=== PATIENT | male | born 1980 | race Caucasian/White ===

== ENCOUNTER 2018-03-29 20:18 | Emergency (ER) | payer MEDICARE, MEDICAID, SELFPAY ==
[2018-03-29 20:20] VITALS: BP 146/76; PULSE 90; RESP 15; TEMP 36.8; O2SAT 100; BMI 24.7
--- NOTE | 2018-03-29 20:28 | ED.DCSUM_ITS ---
- ER Visit Summary Date of Service: 03/29/18 Chief Complaint: Left hand injury History of Present Illness: The patient is a 37 M presents to the emergency department injury to his left hand. Patient was in his normal state of health. He slipped going up stairs. He landed with his hand underneath him. Since that time, he has been unable to straighten his left fourth finger. He did not strike his head. He denies loss of consciousness. He denies any history of prior fracture. He takes no daily medications. Physical Examination: Exam is relatively unremarkable. Patient does have flexion deformity of the left fourth finger. His cap refill is normal. Two- point examination is preserved. He is unable to extend secondary to pain. There is no pain in the wrist. There is no pain in the shoulder. Test Results: [] Emergency Department Course and Treatment: The patient also states that he hit his lateral neck when he fell. He has very minimal tenderness. There is no ecchymosis or abrasion. Plain films were obtained of the neck which were unremarkable. I obtained plain films of his hand. He does have dislocation of the left fourth PIP joints. Patient underwent digital block. The reduction was done. Post reduction films do show to be in place. Patient was placed in an AlumaFoam splint. Be given a short course of analgesics. He will follow-up with orthopedics for reevaluation as needed. Treatment Plan: [] Disposition: Discharge Impression: 1. Mechanical fall 2. Left fourth PIP dislocation with reduction This note was generated with [employer] dictation software. It may contain incorrect words, spelling, and punctuation that were not noted in review of the chart prior to signing ED Disposition - Plan for ED Patient: Chief Complaint: Upper Extremity Injury Instructions: ED Dislocation Finger Redu Prescriptions: Hydrocodone Bitart/Apap 5-325 [[place] 5MG-325MG] 1 tab PO Q6H PRN PRN 3 Days #8 tab PRN Reason: Pain Referrals: Binu Dobbs DO [STAFF PHYSICIAN] -
--- NOTE | 2018-03-29 20:30 | RAD_ITS ---
STUDY: X-RAY - CERVICAL SPINE REASON FOR EXAM: Male, 37 years old. Neck pain after falling on ice. TECHNIQUE: 3 view(s) of the cervical spine were obtained. COMPARISON: None FINDINGS: Normal anterior atlantoaxial articulation. Normal odontoid process. There is straightening of the normal cervical lordosis. Normal vertebral bodies and endplates. Minimal early degenerative disc changes at C5-6. Normal visualized intervertebral neuroforamina. The soft tissue structures are unremarkable. There is no demonstrated fracture of the cervical spine. RAD/Cerv Spine 2 or 3 Views IMPRESSION: Straightening of the cervical spine with otherwise normal alignment. Negative for acute fracture of the cervical spine. Minimal/early degenerative disc findings at C5-6. Electronically Signed: Suzanne Luevano MD at 21:42 EST , Service support ,
[2018-03-29] MEDS: HYDROcodone Bitartrate/Apap 5/325 Tablet PO ×2 (20:32→21:41)
--- NOTE | 2018-03-29 20:40 | RAD_ITS ---
STUDY: X-RAY - LEFT HAND REASON FOR EXAM: Male, 37 years old. Fall TECHNIQUE: 4 view(s) of the hand. COMPARISON: None. FINDINGS: Normal radiocarpal articulation. Normal distal radioulnar joint. Normal visualized carpal bones. Normal carpal articulations Normal carpometacarpal articulation of the thumb. Normal second through fifth carpometacarpal joints. Normal metacarpi. Normal metacarpophalangeal joint of the thumb. Normal interphalangeal joint of the thumb. Normal proximal and distal phalanges of the thumb. Normal metacarpophalangeal joints of the second through fifth fingers. Dislocation of fourth finger at the proximal interphalangeal joint level. RAD/Hand Min 3 Views IMPRESSION: Dislocation of fourth finger at the proximal interphalangeal joint level. Electronically Signed: Jamie Rayo DO at 22:01 EST Tel [phone], Service support ,
--- NOTE | 2018-03-29 21:11 | RAD_ITS ---
STUDY: X-RAY - LEFT HAND, ATTENTION LEFT FINGER REASON FOR EXAM: Male, 37 years old. Post reduction attempt TECHNIQUE: 3 view(s) of the finger were obtained. COMPARISON: None. FINDINGS: Dislocation of the proximal interphalangeal joint of the fourth digit seen. Soft tissue swelling in the region seen. IMPRESSION: Dislocated fourth digit proximal interphalangeal joint Electronically Signed: Pio Bravo, at 22:01 EST Tel , Service support , RAD/Finger(s) Min 2 Views
[2018-03-29] MEDS: Bupivacaine Mpf 0.5% 30 ML VIAL INFILT (21:18)
--- NOTE | 2018-03-29 21:29 | RAD_ITS ---
STUDY: X-RAY - LEFT HAND, ATTENTION FINGER REASON FOR EXAM: Male, 37 years old. Post reduction radiographs TECHNIQUE: Single view(s) of the finger were obtained. COMPARISON: None. FINDINGS: There has been interval reduction of the proximal interphalangeal joint of the fourth digit on this single view radiograph IMPRESSION: Apparent reduction of the proximal interphalangeal joint of the fourth digit on this single view. Electronically Signed: Pio Bravo, at 22:16 EST Tel , Service support , RAD/Finger(s) Min 2 Views
[2018-03-29 21:43] VITALS: BP 148/87; PULSE 85; RESP 16; O2SAT 100
--- OUTSIDE RECORDS SUMMARY | 2018-05-24 23:47 | XMS RPT_ITS ---
:1980 Author Organization [facility] Care Team Providers Name Role Phone FABIOLA UNDERWOOD (BRUNO) Referring Unavailable Serjio Romero Primary Care Unavailable Nery Moon Attending Unavailable Serjio Romero Primary Care Unavailable Binu Babb Attending Unavailable Serjio Romero Primary Care Unavailable Tapan Torres Attending Unavailable PROBLEMS PROBLEMS DATE TYPE CONDITION / CODE ATTENDING STATUS SOURCE 03/29/2018 Unknown S63.259A - Binu Babb Active [place] Unspecified [facility] dislocation of Hospital unspecified Repository finger, initial encounter / S63.259A(ICD-10) 04/20/2017 Active Unspecified NA Active [facility] injury of left [place] wrist, hand and Repository finger(s), initial encounter / S69.92XA(ICD-10) PROCEDURES PROCEDURES No Procedure Records FoundRESULTS RESULTS EMERGENCY DEPARTMENT Observed: 04/18/2018 Status: F Source: [place] SUMMARY 1:57 AM [facility] REPOSITORY [facility] Medical Records Department [address] [place] [address] Emergency Department Summary 04/17/182001 MR#: [id number] Acct: [id number] Name: POLI SIMPSON Rep #: [id number] : 1980 37 From: Nery Moon MD PCP: Serjio Romero MD Status: DEP ER - ER Visit Summary Date of Service: 04/17/18 Chief Complaint: Left fourth finger pain and sciatica History of Present Illness: The patient is a 37 M who was seen here approximately 2 weeks ago for a left fourth finger dislocation. Patient took off his AlumaFoam splint to take a shower. He states he twisted in the shower and developed sharp pain in the right lower back that radiated down his leg. He fell to the floor of the shower and reinjured his left fourth finger. He denies striking his head or any other injury. Physical Examination: Vital signs unremarkable. Patient's lying in bed in no acute distress. Head and neck examination reveals no sign of trauma. Heart is regular rate and rhythm. Lungs sounds are clear. Abdomen is soft nontender. Extremity examination reveals the left fourth finger to have deformity at the PIP joint. He has normal cap refill distally and good sensation. There is no tenderness over the hand itself. Back examination reveals reproducible tenderness of the right sciatic notch. There is no tenderness over the lumbar spine. Test Results: Left hand x-rays reveal partial dislocation of the left fourth finger PIP joint. Emergency Department Course and Treatment: Patient was given naproxen. A digital block is performed of the left fourth finger with 3 cc of 1% lidocaine. The left fourth finger is reduced and splinted in extension. Repeat x-ray reveals no evidence of fracture or dislocation. Patient is to leave splint in place until seen by orthopedics and he is given that information again. He is given prescription for naproxen as well as some prednisone. Treatment Plan: [] Disposition: Discharge Impression: 1. Left fourth finger dislocation status post reduction 2. Sciatica This note was generated with [employer] software. It may contain incorrect words, spelling, and punctuation that were not noted in review of the chart prior to signing ED Disposition - Plan for ED Patient: Disposition: Home or Assisted Living Chief Complaint: Upper Extremity Injury Instructions: ED Dislocation Finger Redu, ED Sciatica Prescriptions: Naproxen [Naprosyn] 500 mg PO BID PRN PRN #20 tablet PRN Reason: Pain Prednisone 10 mg PO UD #33 tablet Referrals: Binu Dobbs DO [STAFF PHYSICIAN] - 1 Week What to do if you have Problems For any increased pain, shortness of breath, bleeding, nausea or vomiting, chest pain, or any unexpected problems, contact your Primary Care Provider. Call [facility] ([phone]) or report to the closest Emergency Room. Call 911 if necessary. 04/18/18 0157 <Electronically signed by Nery Moon MD> Date Nery Moon MD Cosigner Signature (If Indicated): Date CC: Serjio Romero MD DISCHARGE INSTRUCTION Observed: 04/17/2018 Status: F Source: [place] 8:04 PM [facility] REPOSITORY [facility] Medical Records Department [address] [place] [address] Discharge Instruction 04/17/182001 MR#: [id number] Acct: [id number] Name: POLI SIMPSON Rep #: [id number] : 1980 37 From: Nery Moon MD PCP: Serjio Romero MD Status: REG ER ED Disposition - Plan for ED Patient: Disposition: Home or Assisted Living Chief Complaint: Upper Extremity Injury Instructions: ED Dislocation Finger Redu, ED Sciatica Prescriptions: Naproxen [Naprosyn] 500 mg PO BID PRN PRN #20 tablet PRN Reason: Pain Prednisone 10 mg PO UD #33 tablet Referrals: Binu Dobbs DO [STAFF PHYSICIAN] - 1 Week What to do if you have Problems For any increased pain, shortness of breath, bleeding, nausea or vomiting, chest pain, or any unexpected problems, contact your Primary Care Provider. Call [facility] ([phone]) or report to the closest Emergency Room. Call 911 if necessary. 04/17/182003 <Electronically signed by Nery Moon MD> Date Nery Moon MD Cosigner Signature (If Indicated): Date CC: Serjio Romero MD FINGER(S) MIN 2 VIEWS Observed: 04/17/2018 Status: F Source: [place] 7:18 PM [facility] REPOSITORY [facility] Imaging Services [address] [place] [address] Finger(s) Min 2 Views MR#: [id number] Acct: [id number] Name: POLI SIMPSON Rep #: [id number] : 1980 M 37 From: Thomas Trejo MD PCP: Serjio Romero MD Status: REG ER Study: Finger(s) Min 2 Views Date of Exam: 04/17/18 Exam# [id number] Ordering Dr: Nery Moon MD STUDY: X-RAY - LEFT HAND, ATTENTION 4 FINGER REASON FOR EXAM: Male, 37 years old. Post reduction. TECHNIQUE: 3 view(s) of the finger were obtained. COMPARISON: Radiographs of earlier today.. FINDINGS: Normal appearance of the proximal interphalangeal joint. No residual dislocation or subluxation. No fractures. Normal proximal phalanx. Normal middle phalanx. Normal distal phalanx. Normal proximal interphalangeal joint. Normal distal interphalangeal joint. There is dorsal soft tissue swelling at the level of the proximal interphalangeal joint. RAD/Finger(s) Min 2 Views IMPRESSION: No fracture or dislocation. Electronically Signed: Thomas Trejo MD at 20:05 EST , Service support , CC: Nery Moon MD; Serjio Romero MD Silo Man: Signed HAND MIN 3 VIEWS Observed: 04/17/2018 Status: F Source: [place] 5:33 PM [facility] REPOSITORY [facility] Imaging Services [address] [place] [address] Hand Min 3 Views MR#: [id number] Acct: [id number] Name: POLI SIMPSON Rep #: [id number] : 1980 M 37 From: Jamie Rayo DO PCP: Serjio Romero MD Status: REG ER Study: Hand Min 3 Views Date of Exam: 04/17/18 Exam# [id number] Ordering Dr: Nery Moon MD STUDY: X-RAY - LEFT HAND REASON FOR EXAM: Male, 37 years old. Fourth digit deformity TECHNIQUE: 3 view(s) of the hand. COMPARISON: None. FINDINGS: Normal radiocarpal articulation. Normal distal radioulnar joint. Normal visualized carpal bones. Normal carpal articulations Normal carpometacarpal articulation of the thumb. Normal second through fifth carpometacarpal joints. Normal metacarpi. Normal metacarpophalangeal joint of the thumb. Normal interphalangeal joint of the thumb. Normal phalanges of the thumb. Normal metacarpophalangeal joints of the second through fifth fingers. Partial dislocation of the fourth digit at the proximal interphalangeal joint level.. Normal phalanges of the second through fifth fingers. The soft tissue structures are unremarkable. RAD/Hand Min 3 Views IMPRESSION: Partial dislocation of the fourth finger at the possible interphalangeal joint. Electronically Signed: Jamie Rayo DO at 18:34 EST Tel [phone], Service support , CC: Nery Moon MD; Serjio Romero MD Silo Man: Signed EMERGENCY DEPARTMENT Observed: 04/06/2018 Status: F Source: [place] SUMMARY 1:00 PM [facility] REPOSITORY [facility] Medical Records Department [address] [place] [address] Emergency Department Summary 04/06/18 1126 MR#: [id number] Acct: [id number] Name: POLI SIMPSON Rep #: [id number] : 1980 37 From: Tapan Torres MD PCP: Serjio Romero MD Status: DEP ER - ER Visit Summary Date of Service: 04/06/18 Chief Complaint: Bilateral hands and feet pain. History of Present Illness: The patient is a 37 M history of hypoglycemia. Patient states the last 2 days he has had pain in both hands and feet. Denies any trauma. No prior history. Denies any back pain. No weakness. No numbness. No other complaints. States is quite painful. Physical Examination: Male no acute distress. Vital signs are stable afebrile. HEENT exam unremarkable. Pierced lower lip. Posterior pharynx moist and pink. Neck nontender. No lymphadenopathy. Lungs there to auscultation bilaterally. Heart regular rhythm no murmur. Abdomen soft nontender. Normal bowel sounds no peritoneal signs. Patient is moving all 4 extremities. Neurovascular intact. He complains of pain in both hands and feet but he has palpable equal symmetrical radial pulses and dorsalis pedis pulses. There is no swelling. There is no redness. There is no gross bony deformity. He has normal touch sensation. He is able to open and close his hands and feet and complains of discomfort with opening and closing his hands. Forearms are nontender. Calves are nontender without edema or cords. His knees and hips are nontender with normal range of motion or his elbows and shoulders. Neurologically he is awake and alert with no focal motor deficits. Skin is unremarkable other than multiple tattoos. No rashes. No petechiae or purpura. Test Results: None Emergency Department Course and Treatment: Patient will be given a Naprosyn here. Naprosyn for pain. I did explain to both he and his significant other that there really were not any test today to do for something like this. He will be placed on anti-inflammatories instructed to follow-up with his physician if not improving. Treatment Plan: Naprosyn twice daily. Disposition: Discharge Impression: Bilateral hand and feet pain of uncertain etiology. This note was generated with [employer] dictation software. It may contain incorrect words, spelling, and punctuation that were not noted in review of the chart prior to signing ED Disposition - Plan for ED Patient: Chief Complaint: Other, Pain/Inj Referrals: Serjio Romero MD [Primary Care Provider] - What to do if you have Problems For any increased pain, shortness of breath, bleeding, nausea or vomiting, chest pain, or any unexpected problems, contact your Primary Care Provider. Call [facility] ([phone]) or report to the closest Emergency Room. Call 911 if necessary. 04/06/18 1300 <Electronically signed by Tapan Torres MD> Date Tapan Torres MD Cosigner Signature (If Indicated): Date CC: Serjio Romero MD DISCHARGE INSTRUCTION Observed: 04/06/2018 Status: F Source: [place] 12:59 PM [facility] REPOSITORY [facility] Medical Records Department [address] [place] [address] Discharge Instruction 04/06/18 1129 MR#: [id number] Acct: [id number] Name: POLI SIMPSON Rep #: [id number] : 1980 37 From: Tapan Torres MD PCP: Serjio Romero MD Status: DEP ER ED Disposition - Plan for ED Patient: Chief Complaint: Other, Pain/Inj Prescriptions: Naproxen [Naprosyn] 500 mg PO BID PRN PRN #14 tab PRN Reason: Pain Referrals: Serjio Romero MD [Primary Care Provider] - Additional Instructions: Hand and foot pain of uncertain etiology. He will be started on Naprosyn which is an anti-inflammatory such that should help with the discomfort. If this is not improving and resolving follow-up with your doctor. What to do if you have Problems For any increased pain, shortness of breath, bleeding, nausea or vomiting, chest pain, or any unexpected problems, contact your Primary Care Provider. Call [facility] ([phone]) or report to the closest Emergency Room. Call 911 if necessary. 04/06/18 1259 <Electronically signed by Tapan Torres MD> Date Tapan Torres MD Cosigner Signature (If Indicated): Date CC: Serjio Romero MD EMERGENCY DEPARTMENT Observed: 03/29/2018 Status: F Source: [place] SUMMARY 10:05 PM [facility] REPOSITORY [facility] Medical Records Department [address] [place] [address] Emergency Department Summary 03/29/182027 MR#: [id number] Acct: [id number] Name: POLI SIMPSON Rep #: [id number] : 1980 37 From: Binu Babb MD PCP: Serjio Romero MD Status: DEP ER - ER Visit Summary Date of Service: 03/29/18 Chief Complaint: Left hand injury History of Present Illness: The patient is a 37 M presents to the emergency department injury to his left hand. Patient was in his normal state of health. He slipped going up stairs. He landed with his hand underneath him. Since that time, he has been unable to straighten his left fourth finger. He did not strike his head. He denies loss of consciousness. He denies any history of prior fracture. He takes no daily medications. Physical Examination: Exam is relatively unremarkable. Patient does have flexion deformity of the left fourth finger. His cap refill is normal. Two-point examination is preserved. He is unable to extend secondary to pain. There is no pain in the wrist. There is no pain in the shoulder. Test Results: [] Emergency Department Course and Treatment: The patient also states that he hit his lateral neck when he fell. He has very minimal tenderness. There is no ecchymosis or abrasion. Plain films were obtained of the neck which were unremarkable. I obtained plain films of his hand. He does have dislocation of the left fourth PIP joints. Patient underwent digital block. The reduction was done. Post reduction films do show to be in place. Patient was placed in an AlumaFoam splint. Be given a short course of analgesics. He will follow-up with orthopedics for reevaluation as needed. Treatment Plan: [] Disposition: Discharge Impression: 1. Mechanical fall 2. Left fourth PIP dislocation with reduction This note was generated with [employer] dictation software. It may contain incorrect words, spelling, and punctuation that were not noted in review of the chart prior to signing ED Disposition - Plan for ED Patient: Chief Complaint: Upper Extremity Injury Instructions: ED Dislocation Finger Redu Prescriptions: Hydrocodone Bitart/Apap 5-325 [Mclean 5MG-325MG] 1 tab PO Q6H PRN PRN 3 Days #8 tab PRN Reason: Pain Referrals: Binu Dobbs, [STAFF PHYSICIAN] - What to do if you have Problems For any increased pain, shortness of breath, bleeding, nausea or vomiting, chest pain, or any unexpected problems, contact your Primary Care Provider. Call [facility] ([phone]) or report to the closest Emergency Room. Call 911 if necessary. 03/29/18 8041 <Electronically signed by Binu Babb MD> Date Binu Babb MD Cosigner Signature (If Indicated): Date CC: Serjio Romero MD FINGER(S) MIN 2 VIEWS Observed: 03/29/2018 Status: F Source: [place] 9:29 PM [facility] REPOSITORY [facility] Imaging Services [address] [place] [address] [place] [address] Finger(s) Min 2 Views MR#: [id number] Acct: [id number] Name: POLI SIMPSON Rep #: [id number] : 1980 M 37 From: Pio Bravo MD PCP: Serjio Romero MD Status: DEP ER Study: Finger(s) Min 2 Views Date of Exam: 03/29/18 Exam# [id number] Ordering Dr: Binu Babb MD STUDY: X-RAY - LEFT HAND, ATTENTION FINGER REASON FOR EXAM: Male, 37 years old. Post reduction radiographs TECHNIQUE: Single view(s) of the finger were obtained. COMPARISON: None. FINDINGS: There has been interval reduction of the proximal interphalangeal joint of the fourth digit on this single view radiograph IMPRESSION: Apparent reduction of the proximal interphalangeal joint of the fourth digit on this single view. Electronically Signed: Pio Bravo, at 22:16 EST Tel , Service support , RAD/Finger(s) Min 2 Views CC: Serjio Romero MD; Binu Babb MD Silo Man: Signed FINGER(S) MIN 2 VIEWS Observed: 03/29/2018 Status: F Source: [place] 9:11 PM [facility] REPOSITORY [facility] Imaging Services [address] [place] [address] Finger(s) Min 2 Views MR#: [id number] Acct: [id number] Name: POLI SIMPSON Rep #: [id number] : 1980 M 37 From: Pio Bravo MD PCP: Serjio Romero MD Status: DEP ER Study: Finger(s) Min 2 Views Date of Exam: 03/29/18 Exam# [id number] Ordering Dr: Binu Babb MD STUDY: X-RAY - LEFT HAND, ATTENTION LEFT FINGER REASON FOR EXAM: Male, 37 years old. Post reduction attempt TECHNIQUE: 3 view(s) of the finger were obtained. COMPARISON: None. FINDINGS: Dislocation of the proximal interphalangeal joint of the fourth digit seen. Soft tissue swelling in the region seen. IMPRESSION: Dislocated fourth digit proximal interphalangeal joint Electronically Signed: Pio Bravo, at 22:01 EST Tel , Service support , RAD/Finger(s) Min 2 Views CC: Serjio Romero MD; Binu Babb MD Silo Man: Signed CERV SPINE 2 OR 3 Observed: 03/29/2018 Status: F Source: [place] VIEWS 8:30 PM [facility] REPOSITORY [facility] Imaging Services [address] [place] [address] Cerv Spine 2 or 3 Views MR#: [id number] Acct: [id number] Name: POLI SIMPSON Rep #: [id number] : 1980 M 37 From: Suzanne Luevano MD PCP: Serjio Romero MD Status: REG ER Study: Cerv Spine 2 or 3 Views Date of Exam: 03/29/18 Exam# [id number] Ordering Dr: Binu Babb MD STUDY: X-RAY - CERVICAL SPINE REASON FOR EXAM: Male, 37 years old. Neck pain after falling on ice. TECHNIQUE: 3 view(s) of the cervical spine were obtained. COMPARISON: None FINDINGS: Normal anterior atlantoaxial articulation. Normal odontoid process. There is straightening of the normal cervical lordosis. Normal vertebral bodies and endplates. Minimal early degenerative disc changes at C5-6. Normal visualized intervertebral neuroforamina. The soft tissue structures are unremarkable. There is no demonstrated fracture of the cervical spine. RAD/Cerv Spine 2 or 3 Views IMPRESSION: Straightening of the cervical spine with otherwise normal alignment. Negative for acute fracture of the cervical spine. Minimal/early degenerative disc findings at C5-6. Electronically Signed: Suzanne Luevano MD at 21:42 EST , Service support , CC: Serjio Romero MD; Binu Babb MD Silo Man: Signed HAND MIN 3 VIEWS Observed: 03/29/2018 Status: F Source: [place] 8:27 PM [facility] REPOSITORY [facility] Imaging Services [address] [place] [address] Hand Min 3 Views MR#: [id number] Acct: [id number] Name: POLI SIMPSON Rep #: [id number] : 1980 M 37 From: Jamie Rayo DO PCP: Serjio Romero MD Status: DEP ER Study: Hand Min 3 Views Date of Exam: 03/29/18 Exam# [id number] Ordering Dr: Binu Babb MD STUDY: X-RAY - LEFT HAND REASON FOR EXAM: Male, 37 years old. Fall TECHNIQUE: 4 view(s) of the hand. COMPARISON: None. FINDINGS: Normal radiocarpal articulation. Normal distal radioulnar joint. Normal visualized carpal bones. Normal carpal articulations Normal carpometacarpal articulation of the thumb. Normal second through fifth carpometacarpal joints. Normal metacarpi. Normal metacarpophalangeal joint of the thumb. Normal interphalangeal joint of the thumb. Normal proximal and distal phalanges of the thumb. Normal metacarpophalangeal joints of the second through fifth fingers. Dislocation of fourth finger at the proximal interphalangeal joint level. RAD/Hand Min 3 Views IMPRESSION: Dislocation of fourth finger at the proximal interphalangeal joint level. Electronically Signed: Jamie Rayo DO at 22:01 EST Tel [phone], Service support , CC: Serjio Romero MD; Binu Babb MD Silo Man: Signed XR WRIST 4V Observed: 04/20/2017 Status: F Source: [place] PA/LAT/OBL/SCAPH LT 4:21 PM [facility] RE[facility] * * *Final Report* * * DATE OF EXAM: Apr 20 2017 4:21PM WOX [id number] - XR WRIST 4V PA/LAT/OBL/SCAPH LT / PROCEDURE REASON: Unspecified injury of left wrist, hand and finger(s), initial encounter * * * * Physician Interpretation * * * * EXAMINATION: XR WRIST 4V PA/LAT/OBL/SCAPH LT Clinical history: Unspecified injury of left wrist, hand and finger(s), initial encounter Views: 2 RESULT: There is no fracture. Alignment is normal. Carpal arcs are maintained IMPRESSION: NO RADIOGRAPHIC EVIDENCE OF FRACTURE Silo Man: MARTINEZ Transcribe Date/Time: Apr 20 2017 4:48P Dictated by : RACHAEL TSE MD This examination was interpreted and the report reviewed and electronically signed by: RACHAEL TSE MD on Apr 20 2017 4:48PM EST [id number] PROGRESS Observed: 04/20/2017 Status: COMPLETED Source: [place] 4:16 PM [facility] REPOSITORY HNO ID: [id number] Author: Maryse Turner (Rt) Mary Curry Service: (none) Author Type: Claim Analyst Type: Progress Notes Filed: 04/20/2017 4:21 PM Note Text: Radiology Service Progress Note PATIENT NAME: Poli Simpson DATE OF SERVICE: April 20, 2017 TIME: 4:16 PM PATIENT IDENTITY VERIFICATION COMPLETED USING TWO (2) METHODS: Patient confirmed name verbally and Date of . PATIENT GENDER DATA: Male PATIENT RELEVANT IMPLANT DATA REVIEWED: Not Applicable RADIOLOGY DEPARTMENT: General X-ray: Exam(s) Completed: Upper Extremity X-Ray(s): Wrist, Left : PERIPHERAL IV DATA: Not applicable SIGNED BY: RT Honey April 20, 2017 4:16 PM PROGRESS Observed: 04/20/2017 Status: COMPLETED Source: [place] 4:09 PM [facility] RE[facility]IT[facility] HNO ID: [id number] Author: Fabiola Underwood Service: (none) Author Type: Physician National Business Director Type: Progress Notes Filed: 04/20/2017 6:13 PM Note Text: 04/20/2017 Patient presents with: left wrist pain: fell on it 1 week ago SUBJECTIVE: This is a 36 year old that is here today for Complaint(s) of left wrist pain x 1 week ago. Caught himself on an outstretched hand. + swelling into his fingers. Pain mostly on the radial aspect. + shooting pains. PAST MEDICAL HISTORY Diagnosis Date - Bipolar disorder, unspecified (HCC) - Depressive disorder, not elsewhere classified ALLERGIES Ciprofloxacin MEDICATIONS Current Outpatient Prescriptions: NAPROXEN SODIUM (ALEVE ORAL) Take by mouth. methylPREDNISolone (MEDROL, DENI,) 4 mg Dose-Pack Take as directed cyclobenzaprine (FLEXERIL) 10 mg tablet Take 1 tablet by mouth three times daily as needed for Muscle Spasm. Varenicline (CHANTIX) 0.5 mg (11)- 1 mg (42) tablet Take 0.5 mg daily x3days, then twice daily for 4 days, then 1mg twice daily for duration. No current facility-administered medications for this visit. SOCIAL HISTORY Social History Marital status: Spouse name: Years of education: Number of children: Social History Main Topics Smoking status: Current Every Day Smoker Packs/day: 2.50 Years: 6.00 Types: Cigarettes Smokeless status: Never Used Alcohol use: No Comment: stopped for last year Drug use: Yes Comment: recreational, stopped last year Sexual activity: Yes Partners with: Female control/protection: Condom, Pill REVIEW OF SYSTEMS All other reviewed and negative other than HPI. OBJECTIVE: BP 130/86 Pulse 68 Temp 36.1 ?C (97 ?F) (Tympanic) Resp 16 Wt 76.5 kg (168 lb 9.6 oz) BMI 23.6 kg/m2 APPEARANCE Well appearing, alert, in no acute distress, well-hydrated, well nourished. SKIN scabbed papular lesions located on hands DAVID. EXT left wrist with normal ROM, pain with flexion. + snuffbox TTP. + TTP over distal radius. ASSESSMENT/PLAN: 1. Left wrist injury, initial encounter - ICD9: 959.3, ICD10: S69.92XA (primary diagnosis) No obvious fracture Patient placed in thumb spica splint. - XR WRIST INJURY 4V PA/LAT/OBL/SCAPH LT 2. Skin lesions - ICD9: 709.9, ICD10: L98.9 - MUPIROCIN 2 % TOPICAL OINTMENT The patient indicates understanding of these issues and agrees with the plan. Reviewed red flags and when to seek care sooner. Fabiola Underwood PA-C 04/20/2017 CNOV Observed: 04/20/2017 Status: COMPLETED Source: [place] 3:45 PM [facility] REPOSITORY Office Visit ([facility]) POLI SIMPSON ([id number]) 1980 M Date Time Provider Department 04/20/17 3:45 PM FABIOLA UNDERWOOD) WSTR During your visit today, we recorded the following information about you: Temperature Pulse Respiration Blood pressure 97 degrees 68/minute 16/minute 130/86 Weight 76.5 kg Fabiola Underwood PA-C 04/20/2017 6:13 PM Signed 04/20/2017 Patient presents with: left wrist pain: fell on it 1 week ago SUBJECTIVE: This is a 36 year old that is here today for Complaint(s) of left wrist pain x 1 week ago. Caught himself on an outstretched hand. + swelling into his fingers. Pain mostly on the radial aspect. + shooting pains. PAST MEDICAL HISTORY Diagnosis Date - Bipolar disorder, unspecified (HCC) - Depressive disorder, not elsewhere classified ALLERGIES Ciprofloxacin MEDICATIONS Current Outpatient Prescriptions: NAPROXEN SODIUM (ALEVE ORAL) Take by mouth. methylPREDNISolone (MEDROL, DENI,) 4 mg Dose-Pack Take as directed cyclobenzaprine (FLEXERIL) 10 mg tablet Take 1 tablet by mouth three times daily as needed for Muscle Spasm. Varenicline (CHANTIX) 0.5 mg (11)- 1 mg (42) tablet Take 0.5 mg daily x3days, then twice daily for 4 days, then 1mg twice daily for duration. No current facility-administered medications for this visit. SOCIAL HISTORY Social History Marital status: Spouse name: Years of education: Number of children: Social History Main Topics Smoking status: Current Every Day Smoker Packs/day: 2.50 Years: 6.00 Types: Cigarettes Smokeless status: Never Used Alcohol use: No Comment: stopped for last year Drug use: Yes Comment: recreational, stopped last year Sexual activity: Yes Partners with: Female control/protection: Condom, Pill REVIEW OF SYSTEMS All other reviewed and negative other than HPI. OBJECTIVE: BP 130/86 Pulse 68 Temp 36.1 ?C (97 ?F) (Tympanic) Resp 16 Wt 76.5 kg (168 lb 9.6 oz) BMI 23.6 kg/m2 APPEARANCE Well appearing, alert, in no acute distress, well- hydrated, well nourished. SKIN scabbed papular lesions located on hands DAVID. EXT left wrist with normal ROM, pain with flexion. + snuffbox TTP. + TTP over distal radius. ASSESSMENT/PLAN: 1. Left wrist injury, initial encounter - ICD9: 959.3, ICD10: S69.92XA (primary diagnosis) No obvious fracture Patient placed in thumb spica splint. - XR WRIST INJURY 4V PA/LAT/OBL/SCAPH LT 2. Skin lesions - ICD9: 709.9, ICD10: L98.9 - MUPIROCIN 2 % TOPICAL OINTMENT The patient indicates understanding of these issues and agrees with the plan. Reviewed red flags and when to seek care sooner. Fabiola Underwood PA-C 04/20/2017 Referring Provider: SELF [[id number]] Allergies As of Date: 04/20/2017 Noted Allergy Reaction CIPROFLOXACIN 09/15/2015 17 - Myalgia Comments: Joint pain, ecchymosis of joints per patient Date Reviewed: 04/20/2017 Reviewed by: Dawn Herrera LPN - Fully Assessed Reason for Visit: left wrist pain [Other] Cmt: fell on it 1 week ago Primary Visit Diagnosis:Left wrist injury, initial encounter [S69.92XA] Other Visit Diagnosis:Skin lesions [L98.9] Order(s):XR WRIST INJURY 4V PA/LAT/OBL/SCAPH LT [[id number]] Order #: [id number] FUTURE mupirocin (BACTROBAN) 2 % ointmentApply 1 application to affected area three times daily. Location: handsDisp: 1 TubeRfl: 0 Prescriptions as of 04/20/2017 Sig: MUPIROCIN 2 % TOPICAL OINTMENT Apply 1 application to affect* ALEVE ORAL Take by mouth. METHYLPREDNISOLONE 4 MG TABLE* Take as directed CYCLOBENZAPRINE 10 MG TABLET Take 1 tablet by mouth three * VARENICLINE 0.5 MG (11)-1 MG * Take 0.5 mg daily x3days, the* Medication notes this encounter ALEVE ORAL >> Dawn Herrera LPN 04/20/2017 4:03 PM >> DAWN HERRERA LPN [facility] Apr 20, 2017 4:03 PM Not Taking METHYLPREDNISOLONE 4 MG TABLETS IN A DOSE PACK >> Dawn Herrera LPN 04/20/2017 4:03 PM >> DAWN HERRERA LPN [facility] Apr 20, 2017 4:03 PM Finished CYCLOBENZAPRINE 10 MG TABLET >> Dawn Herrera LPN 04/20/2017 4:03 PM >> DAWN HERRERA LPN [facility] Apr 20, 2017 4:03 PM Not Taking Problem List As Of Date 04/20/2017 Noted Resolved STERILIZATION [Z30.2] INVALID FOR* Seizure disorder (HCC) [G40.909] INVALID FOR* Hypoglycemia [E16.2] INVALID FOR* Bipolar affective disorder (HCC) [F31.9] INVALID FOR* Prescriptions ordered this encounter Disp Refills Start End MUPIROCIN 2 % TOPICAL OINTMENT 1 Tu* 0 04/20/2017 Route: TOPICAL Sig: Apply 1 application to affected area three times daily. Location: hands Encounter Status:Closed by FABIOLA UNDERWOOD PA-C on 04/20/17 ALLERGIES ALLERGIES DATE TYPE / CODE NAME / CODE REACTION SEVERITY SOURCE 04/17/2018 Drug ciprofloxacin Other Unknown Tommy Allergy/416 HCl/[id number](RXNO Community [id number]([facility] ED CT) Repository 04/17/2018 Drug ciprofloxacin/F0060 Other Unknown Tommy Allergy/416 88370(RXNORM) Community [id number]([facility] ED CT) Repository 09/15/2015 DRUG CIPROFLOXACIN Myalgia [facility] INGREDI/[address] [place] [id number]([facility] Repository ED CT) ENCOUNTERS ENCOUNTERS ADMIT/DISCHARGE ACCOUNT ADMITTING ENCOUNTER LOCATION SOURCE NUMBER CLASS 04/17/2018/04/17/20 [id number] Emergency Tommy [address] ing:ED Repository 04/06/2018/04/06/20 [id number] Emergency [address] ing:ED Repository 03/29/2018/03/29/20 [id number] Emergency [address] ing:ED Repository 04/20/2017/04/20/20 [id number] Ambulatory [address] Repository 04/20/2017/05/02/19 [id number] Ambulatory [address] Repository PAYERS PAYERS ENCOUNTER GUARANTOR PAYER SUBSCRIBER SOURCE 04/17/2018 POLI L Primary POLI L [place] [id number] Insurance:MEDICARE RAMSIERDOB: Community [facility] [id number] Number: Repository [id number]: [phone] [id number] () Date:2018-04-17 04/17/2018 Secondary POLI L [place] [facility] Number: [id number] [id number] Repository Date:2018-04-17 04/17/2018 Tertiary NOT GIVENUNK [place] Insurance:SELF PAY [facility] Number: Effective Repository Date:2018-04-17 04/06/2018 POLI L Primary POLI L [place] [id number] Insurance:MEDICARE RAMSIERDOB: [facility] [id number] Number: Repository [id number]: 330 [id number] () Date:2018-04-06 04/06/2018 Secondary POLI L [place] Insurance:MEDICAIDPol RAMSIERDOB: Community [place] Number: [id number] [id number] Repository Date:2018-04-06 04/06/2018 Tertiary NOT GIVENUNK [place] Insurance:SELF PAY [facility]: Effective Repository Date:2018-04-06 03/29/2018 POLI L Primary POLI L [place] [id number] Insurance:MEDICARE RAMSIERDOB: Community [facility]Policy [id number] Number: Repository [address]Ucb: [phone] [id number] [phone] () Date:2018-03-29 03/29/2018 Secondary POLI L [place] Insurance:MEDICAIDPol RAMSIERDOB: Community icy Number: [id number] [id number] Repository Date:2018-03-29 03/29/2018 Tertiary NOT GIVENUNK [place] Insurance:SELF PAY [facility] Number: Effective Repository Date:2018-03-29
== END 2018-03-29 21:45 | disposition home or self-care (01) ==
PROVIDERS: Emergency Provider Emergency Medicine; Family Provider Family Medicine; PCP Family Medicine
DX: S63.285A Dislocation of proximal interphalangeal joint of left ring finger, initial encounter (principal); M54.2 Cervicalgia; W10.9XXA Fall (on) (from) unspecified stairs and steps, initial encounter; Y93.9 Activity, unspecified; Y92.9 Unspecified place or not applicable; Y99.9 Unspecified external cause status; Z72.0 Tobacco use
CPT/HCPCS: 26770; 72040; 73130; 73140; 99283

== ENCOUNTER 2018-04-06 11:02 | Emergency (ER) | payer MEDICARE, MEDICAID, SELFPAY ==
[2018-04-06 11:03] VITALS: BP 127/76; PULSE 100; RESP 16; TEMP 36.3; O2SAT 98; BMI 24.7
--- NOTE | 2018-04-06 11:29 | ED.DCSUM_ITS ---
- ER Visit Summary Date of Service: 04/06/18 Chief Complaint: Bilateral hands and feet pain. History of Present Illness: The patient is a 37 M history of hypoglycemia. Patient states the last 2 days he has had pain in both hands and feet. Denies any trauma. No prior history. Denies any back pain. No weakness. No numbness. No other complaints. States is quite painful. Physical Examination: Male no acute distress. Vital signs are stable afebrile. HEENT exam unremarkable. Pierced lower lip. Posterior pharynx moist and pink. Neck nontender. No lymphadenopathy. Lungs there to auscultation bilaterally. Heart regular rhythm no murmur. Abdomen soft nontender. Normal bowel sounds no peritoneal signs. Patient is moving all 4 extremities. Neurovascular intact. He complains of pain in both hands and feet but he has palpable equal symmetrical radial pulses and dorsalis pedis pulses. There is no swelling. There is no redness. There is no gross bony deformity. He has normal touch sensation. He is able to open and close his hands and feet and complains of discomfort with opening and closing his hands. Forearms are nontender. Calves are nontender without edema or cords. His knees and hips are nontender with normal range of motion or his elbows and shoulders. Neurologically he is awake and alert with no focal motor deficits. Skin is unremarkable other than multiple tattoos. No rashes. No petechiae or purpura. Test Results: None Emergency Department Course and Treatment: Patient will be given a Naprosyn here. Naprosyn for pain. I did explain to both he and his significant other that there really were not any test today to do for something like this. He will be placed on anti-inflammatories instructed to follow-up with his physician if not improving. Treatment Plan: Naprosyn twice daily. Disposition: Discharge Impression: Bilateral hand and feet pain of uncertain etiology. This note was generated with [employer] dictation software. It may contain incorrect words, spelling, and punctuation that were not noted in review of the chart prior to signing ED Disposition - Plan for ED Patient: Chief Complaint: Other, Pain/Inj Referrals: Serjio Romero MD [Primary Care Provider] -
--- NOTE | 2018-04-06 11:29 | ED.DEP ---
ED Disposition - Plan for ED Patient: Chief Complaint: Other, Pain/Inj Prescriptions: Naproxen [Naprosyn] 500 mg PO BID PRN PRN #14 tab PRN Reason: Pain Referrals: Serjio Romero MD [Primary Care Provider] - Additional Instructions: Hand and foot pain of uncertain etiology. He will be started on Naprosyn which is an anti-inflammatory such that should help with the discomfort. If this is not improving and resolving follow-up with your doctor.
[2018-04-06] MEDS: Naproxen 375 MG Tablet PO (11:39)
== END 2018-04-06 11:52 | disposition home or self-care (01) ==
PROVIDERS: Emergency Provider Emergency Medicine; Family Provider Family Medicine; PCP Family Medicine
DX: M79.642 Pain in left hand (principal); M79.641 Pain in right hand; M79.672 Pain in left foot; M79.671 Pain in right foot; Z72.0 Tobacco use
CPT/HCPCS: 99283

== ENCOUNTER 2018-04-17 16:55 | Emergency (ER) | payer MEDICARE, MEDICAID, SELFPAY ==
[2018-04-17 16:56] VITALS: BP 128/85; PULSE 93; RESP 18; TEMP 36.6; O2SAT 99; BMI 24.4
--- NOTE | 2018-04-17 17:33 | RAD_ITS ---
STUDY: X-RAY - LEFT HAND REASON FOR EXAM: Male, 37 years old. Fourth digit deformity TECHNIQUE: 3 view(s) of the hand. COMPARISON: None. FINDINGS: Normal radiocarpal articulation. Normal distal radioulnar joint. Normal visualized carpal bones. Normal carpal articulations Normal carpometacarpal articulation of the thumb. Normal second through fifth carpometacarpal joints. Normal metacarpi. Normal metacarpophalangeal joint of the thumb. Normal interphalangeal joint of the thumb. Normal phalanges of the thumb. Normal metacarpophalangeal joints of the second through fifth fingers. Partial dislocation of the fourth digit at the proximal interphalangeal joint level.. Normal phalanges of the second through fifth fingers. The soft tissue structures are unremarkable. RAD/Hand Min 3 Views IMPRESSION: Partial dislocation of the fourth finger at the possible interphalangeal joint. Electronically Signed: Jamie Rayo DO at 18:34 EST Tel [phone], Service support ,
[2018-04-17] MEDS: Naproxen 500 MG Tablet PO (17:47)
--- NOTE | 2018-04-17 19:20 | RAD_ITS ---
STUDY: X-RAY - LEFT HAND, ATTENTION 4 FINGER REASON FOR EXAM: Male, 37 years old. Post reduction. TECHNIQUE: 3 view(s) of the finger were obtained. COMPARISON: Radiographs of earlier today.. FINDINGS: Normal appearance of the proximal interphalangeal joint. No residual dislocation or subluxation. No fractures. Normal proximal phalanx. Normal middle phalanx. Normal distal phalanx. Normal proximal interphalangeal joint. Normal distal interphalangeal joint. There is dorsal soft tissue swelling at the level of the proximal interphalangeal joint. RAD/Finger(s) Min 2 Views IMPRESSION: No fracture or dislocation. Electronically Signed: Thomas Trejo MD at 20:05 EST , Service support ,
--- NOTE | 2018-04-17 20:02 | ED.VISSUMM ---
- ER Visit Summary Date of Service: 04/17/18 Chief Complaint: Left fourth finger pain and sciatica History of Present Illness: The patient is a 37 M who was seen here approximately 2 weeks ago for a left fourth finger dislocation. Patient took off his AlumaFoam splint to take a shower. He states he twisted in the shower and developed sharp pain in the right lower back that radiated down his leg. He fell to the floor of the shower and reinjured his left fourth finger. He denies striking his head or any other injury. Physical Examination: Vital signs unremarkable. Patient's lying in bed in no acute distress. Head and neck examination reveals no sign of trauma. Heart is regular rate and rhythm. Lungs sounds are clear. Abdomen is soft nontender. Extremity examination reveals the left fourth finger to have deformity at the PIP joint. He has normal cap refill distally and good sensation. There is no tenderness over the hand itself. Back examination reveals reproducible tenderness of the right sciatic notch. There is no tenderness over the lumbar spine. Test Results: Left hand x-rays reveal partial dislocation of the left fourth finger PIP joint. Emergency Department Course and Treatment: Patient was given naproxen. A digital block is performed of the left fourth finger with 3 cc of 1% lidocaine. The left fourth finger is reduced and splinted in extension. Repeat x-ray reveals no evidence of fracture or dislocation. Patient is to leave splint in place until seen by orthopedics and he is given that information again. He is given prescription for naproxen as well as some prednisone. Treatment Plan: [] Disposition: Discharge Impression: 1. Left fourth finger dislocation status post reduction 2. Sciatica This note was generated with [employer] dictation software. It may contain incorrect words, spelling, and punctuation that were not noted in review of the chart prior to signing ED Disposition - Plan for ED Patient: Disposition: Home or Assisted Living Chief Complaint: Upper Extremity Injury Instructions: ED Dislocation Finger Redu, ED Sciatica Prescriptions: Naproxen [Naprosyn] 500 mg PO BID PRN PRN #20 tablet PRN Reason: Pain Prednisone 10 mg PO UD #33 tablet Referrals: Binu Dobbs DO [STAFF PHYSICIAN] - 1 Week
[2018-04-17 20:10] VITALS: BP 123/78; PULSE 71; RESP 16; O2SAT 98
--- OUTSIDE RECORDS SUMMARY | 2018-07-20 06:02 | XMS RPT_ITS ---
:1980 Author Organization [facility] Care Team Providers Name Role Phone MARS ALANIZ (IZZY) Referring Unavailable AUSTIN RITTER Attending Unavailable MARS ALANIZ (IZZY) Referring Unavailable Serjio Romero Primary Care Unavailable Nery Moon Attending Unavailable Serjio Romero Primary Care Unavailable Tapan Torres Attending Unavailable Serjio Romero Primary Care Unavailable Binu Babb Attending Unavailable PROBLEMS PROBLEMS DATE TYPE CONDITION / CODE ATTENDING STATUS SOURCE 05/18/2018 Active Unspecified NA Active [place] injury of left [place] wrist, hand and Repository finger(s), subsequent encounter / S69.92XD(ICD-10) 03/29/2018 Unknown S63.259A - Binu Babb Active [place] [facility] dislocation of Hospital unspecified Repository finger, initial encounter / S63.259A(ICD-10) PROCEDURES PROCEDURES No Procedure Records FoundRESULTS RESULTS PROGRESS Observed: 05/18/2018 Status: COMPLETED Source: [place] 8:46 AM [facility] REPOSITORY HNO ID: [id number] Author: Austin Ritter V Service: (none) Author Type: Physician Type: Progress Notes Filed: 05/18/2018 8:51 AM Note Text: SUBJECTIVE: Poli Simpson is a 37 year old male who is here for a left ring finger injury. It occurred 2 months ago when he dislocated his finger while moving furniture. He was seen in [facility] ED, finger was reduced and splinted. Symptoms include unable to fully straighten finger. He was incarcerated 1 month ago, was not wearing splint during that time. PAST MEDICAL HISTORY Diagnosis Date - Bipolar disorder, unspecified (HCC) - Depressive disorder, not elsewhere classified No past surgical history on file. Current Outpatient Prescriptions on File Prior to Visit: NAPROXEN SODIUM (ALEVE ORAL) Take by mouth. methylPREDNISolone (MEDROL, DENI,) 4 mg Dose-Pack Take as directed mupirocin (BACTROBAN) 2 % ointment Apply 1 application to affected area three times daily. Location: hands (Patient not taking: Reported on 05/18/2018 ) cyclobenzaprine (FLEXERIL) 10 mg tablet Take 1 tablet by mouth three times daily as needed for Muscle Spasm. (Patient not taking: Reported on 05/18/2018 ) Varenicline (CHANTIX) 0.5 mg (11)- 1 mg (42) tablet Take 0.5 mg daily x3days, then twice daily for 4 days, then 1mg twice daily for duration. No current facility-administered medications on file prior to visit. EXAM: General: cooperative and NAD Location: left ring finger: Boutonniere deformity noted. Flexion contracture at PIP joint. 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 He would like to try OT- order entered. Austin Ritter DO PROGRESS Observed: 05/18/2018 Status: COMPLETED Source: [place] 8:[address] [facility] REPOSITORY HNO ID: [id number] Author: Tana Han Service: (none) Author Type: Registered Nurse Type: Progress Notes Filed: 05/18/2018 8:51 AM Note Text: AMB ROOMING INTAKE FLOWSHEET DATA Risk Screening Do you have concerns about personal safety or safety in the home?: No Pain Pain Score: 6/10 Pain Location: Finger (left ring finger) Description: Aching, Sharp, Tingling, Numbness Duration Amount of Time: 2 Duration Units: Months Frequency: Continuous Intervention: Medication Patient presents with: New Patient: left ring finger injury Patient reports that he fell in March while moving furniture and injured left ring finger. was seen at [facility] ER, was placed in splint. He fell a 2nd time in March and was seen at [facility], and was splinted again. patient is right hand dominant. PROGRESS Observed: 05/18/2018 Status: COMPLETED Source: [place] 8:[address] [facility] REPOSITORY HNO ID: [id number] Author: Fany (Rt) Mary Palomares Service: (none) Author Type: Ribbon Sweatband Operator Type: Progress Notes Filed: 05/18/2018 8:19 AM Note Text: Radiology Service Progress Note PATIENT NAME: Poli Simpson DATE OF SERVICE: May 18, 2018 TIME: 8:18 AM PATIENT IDENTITY VERIFICATION COMPLETED USING TWO (2) METHODS: Patient confirmed name verbally and Date of . PATIENT GENDER DATA: Male PATIENT RELEVANT IMPLANT DATA REVIEWED: Not Applicable RADIOLOGY DEPARTMENT: General X-ray: Exam(s) Completed: Upper Extremity X-Ray(s): Fingers/Thumb, left : PERIPHERAL IV DATA: Not applicable SIGNED BY: RT Kale May 18, 2018 8:18 AM XR DIGIT 3V Observed: 05/18/2018 Status: F Source: [place] FRONTAL/LAT/OBL LT 8:[address] [facility] REPOSITORY * * *Final Report* * * DATE OF EXAM: May 18 2018 8:18AM [id number] [id number] - XR DIGIT 3V FRONTAL/LAT/OBL LT / PROCEDURE REASON: Finger injury, left, subsequent encounter * * * * Physician Interpretation * * * * Indication: Left ring finger injury Comparison: None 3 views of the fourth digit of the left hand are obtained. There is normal architecture and mineralization of bone. There is no acute fracture or dislocation. There is flexion of the proximal interphalangeal joint and extension of the distal interphalangeal joint of the left fourth digit. Impression: No acute fracture or dislocation Marketing Recruiter: PSCB Transcribe Date/Time: May 18 2018 8:20A Dictated by : AMBROCIO BERRY MD This examination was interpreted and the report reviewed and electronically signed by: AMBROCIO BERRY MD on May 18 2018 8:22AM EST [id number] Observed: 05/18/2018 Status: COMPLETED Source: [place] 8:[address] [facility] REPOSITORY Office Visit ([facility]) POLI SIMPSON ([id number]) 1980 M Date Time Provider Department 05/18/18 8:00 AM AUSTIN RITTER During your visit today, we recorded the following information about you: Tana Han RN 05/18/2018 8:51 AM Signed AMB ROOMING INTAKE FLOWSHEET DATA Risk Screening Do you have concerns about personal safety or safety in the home?: No Pain Pain Score: 6/10 Pain Location: Finger (left ring finger) Description: Aching, Sharp, Tingling, Numbness Duration Amount of Time: 2 Duration Units: Months Frequency: Continuous Intervention: Medication Patient presents with: New Patient: left ring finger injury Patient reports that he fell in March while moving furniture and injured left ring finger. was seen at [facility] ER, was placed in splint. He fell a 2nd time in March and was seen at [facility], and was splinted again. patient is right hand dominant. Austin Ritter DO 05/18/2018 8:51 AM Signed SUBJECTIVE: Poli Simpson is a 37 year old male who is here for a left ring finger injury. It occurred 2 months ago when he dislocated his finger while moving furniture. He was seen in [facility] ED, finger was reduced and splinted. Symptoms include unable to fully straighten finger. He was incarcerated 1 month ago, was not wearing splint during that time. PAST MEDICAL HISTORY Diagnosis Date - Bipolar disorder, unspecified (HCC) - Depressive disorder, not elsewhere classified No past surgical history on file. Current Outpatient Prescriptions on File Prior to Visit: NAPROXEN SODIUM (ALEVE ORAL) Take by mouth. methylPREDNISolone (MEDROL, DENI,) 4 mg Dose-Pack Take as directed mupirocin (BACTROBAN) 2 % ointment Apply 1 application to affected area three times daily. Location: hands (Patient not taking: Reported on 05/18/2018 ) cyclobenzaprine (FLEXERIL) 10 mg tablet Take 1 tablet by mouth three times daily as needed for Muscle Spasm. (Patient not taking: Reported on 05/18/2018 ) Varenicline (CHANTIX) 0.5 mg (11)- 1 mg (42) tablet Take 0.5 mg daily x3days, then twice daily for 4 days, then 1mg twice daily for duration. No current facility-administered medications on file prior to visit. EXAM: General: cooperative and NAD Location: left ring finger: Boutonniere deformity noted. Flexion contracture at PIP joint. 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 He would like to try OT- order entered. 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 METHYLPREDNISOLONE 4 MG TABLE* Take as directed MUPIROCIN 2 % TOPICAL OINTMENT Apply 1 application to affect* Patient not taking: Reported on 05/18/2018 CYCLOBENZAPRINE 10 MG TABLET Take 1 tablet by mouth three * Patient not taking: Reported on 05/18/2018 VARENICLINE 0.5 MG (11)-1 MG * Take 0.5 mg daily x3days, the* Problem List As Of Date 05/18/2018 Noted Resolved STERILIZATION [Z30.2] INVALID FOR* Seizure disorder (HCC) [G40.909] INVALID FOR* Hypoglycemia [E16.2] INVALID FOR* Bipolar affective disorder (HCC) [F31.9] INVALID FOR* Encounter Status:Closed by AUSTIN RITTER DO, V on 05/18/18 PROGRESS Observed: 05/11/2018 Status: COMPLETED Source: [place] 3:59 PM [facility] REPOSITORY HNO ID: [id number] Author: Mars Leija) Marce Service: (none) Author Type: Physician Air Moving Technician Type: Progress Notes Filed: 05/11/2018 4:04 PM Note Text: Subjective HPI Patient presents with left finger problem. On March 2090 had dislocated the finger and it was reduced at [facility]. He had gone back in when he was arrested because they took the splint off and he needed another splint per the patient. He states since then his finger has retracted and he can't straighten his finger. He has not followed up with orthopedics. Review of Systems Musculoskeletal: Left ring finger injury All other systems reviewed and are negative. PAST MEDICAL HISTORY Diagnosis Date - Bipolar disorder, unspecified (HCC) - Depressive disorder, not elsewhere classified Current Outpatient Prescriptions: mupirocin (BACTROBAN) 2 % ointment Apply 1 application to affected area three times daily. Location: hands Disp: 1 Tube Rfl: 0 NAPROXEN SODIUM (ALEVE ORAL) Take by mouth. Disp: Rfl: methylPREDNISolone (MEDROL, DENI,) 4 mg Dose-Pack Take as directed Disp: 1 Package Rfl: 0 cyclobenzaprine (FLEXERIL) 10 mg tablet Take 1 tablet by mouth three times daily as needed for Muscle Spasm. Disp: 20 tablet Rfl: 0 Varenicline (CHANTIX) 0.5 mg (11)- 1 mg (42) tablet Take 0.5 mg daily x3days, then twice daily for 4 days, then 1mg twice daily for duration. Disp: 1 Package Rfl: 0 No current facility-administered medications for this visit. No past surgical history on file. FAMILY HISTORY Problem Relation Age of Onset - Psychiatry Father bipolar disorer - Cancer Mother lung - Cancer Father prostate - Cancer Maternal Grandfather prostate - Cancer Paternal Grandfather lung - Alzheimer's Disease Paternal Grandmother - Diabetes Father Social History Substance Use Topics - Smoking status: Current Every Day Smoker Packs/day: 2.50 Years: 6.00 Types: Cigarettes - Smokeless tobacco: Never Used - Alcohol use No Comment: stopped for last year BP 112/88 Pulse 91 Temp 36.6 ?C (97.9 ?F) (Left Tympanic) Resp 16 Wt 83.9 kg (185 lb) SpO2 98% BMI 25.90 kg/m? Objective Physical Exam Constitutional: He is oriented to person, place, and time and well-developed, well-nourished, and in no distress. HENT: Head: Normocephalic and atraumatic. Musculoskeletal: Hands: Exam of the left fourth digit reveals that the finger is unable to extend at the proximal interphalangeal joint. It appears to be locked in flexion. He is able to have range of motion at the MCP and DIP. Normal distal sensation. Cap refill brisk. He has some mild swelling of the proximal phalanx. Neurological: He is alert and oriented to person, place, and time. Skin: Skin is warm and dry. No rash noted. Psychiatric: Affect and judgment normal. Nursing note and vitals reviewed. ASSESSMENT/PLAN: 1. Finger injury, left, subsequent encounter - ICD9: V58.89, 959.5, ICD10: S69.92XD Patient has an injury from March 29 and subsequently had not followed up with orthopedics. I did advise him that that would be the next step would be to see orthopedics. I am not able to straighten the finger at the PIP to splint it. I did order an x-ray and instructed him have this done before seeing orthopedics. He was called with an appointment for next week. Discussed with Dr. Thompson who was agreeable with this as well. - XR DIGIT GENERAL 3V FRONTAL/LAT/OBL LT - CONSULT TO ORTHOPAEDICS BRUNO Kwon Observed: 05/11/2018 Status: COMPLETED Source: [place] 2:[address] [facility] REPOSITORY Office Visit ([facility]) POLI SIMPSON ([id number]) 1980 M Date Time Provider Department 05/11/18 2:45 PM MARS ALANIZ) [facility] During your visit today, we recorded the following information about you: Temperature Pulse Respiration Blood pressure 97.9 degrees 91/minute 16/minute 112/88 Weight 83.9 kg Mars Alaniz PA-C 05/11/2018 4:04 PM Signed Subjective HPI Patient presents with left finger problem. On March 2090 had dislocated the finger and it was reduced at [facility]. He had gone back in when he was arrested because they took the splint off and he needed another splint per the patient. He states since then his finger has retracted and he can't straighten his finger. He has not followed up with orthopedics. Review of Systems Musculoskeletal: Left ring finger injury All other systems reviewed and are negative. PAST MEDICAL HISTORY Diagnosis Date - Bipolar disorder, unspecified (HCC) - Depressive disorder, not elsewhere classified Current Outpatient Prescriptions: mupirocin (BACTROBAN) 2 % ointment Apply 1 application to affected area three times daily. Location: hands Disp: 1 Tube Rfl: 0 NAPROXEN SODIUM (ALEVE ORAL) Take by mouth. Disp: Rfl: methylPREDNISolone (MEDROL, DENI,) 4 mg Dose-Pack Take as directed Disp: 1 Package Rfl: 0 cyclobenzaprine (FLEXERIL) 10 mg tablet Take 1 tablet by mouth three times daily as needed for Muscle Spasm. Disp: 20 tablet Rfl: 0 Varenicline (CHANTIX) 0.5 mg (11)- 1 mg (42) tablet Take 0.5 mg daily x3days, then twice daily for 4 days, then 1mg twice daily for duration. Disp: 1 Package Rfl: 0 No current facility-administered medications for this visit. No past surgical history on file. FAMILY HISTORY Problem Relation Age of Onset - Psychiatry Father bipolar disorer - Cancer Mother lung - Cancer Father prostate - Cancer Maternal Grandfather prostate - Cancer Paternal Grandfather lung - Alzheimer's Disease Paternal Grandmother - Diabetes Father Social History Substance Use Topics - Smoking status: Current Every Day Smoker Packs/day: 2.50 Years: 6.00 Types: Cigarettes - Smokeless tobacco: Never Used - Alcohol use No Comment: stopped for last year BP 112/88 Pulse 91 Temp 36.6 ?C (97.9 ?F) (Left Tympanic) Resp 16 Wt 83.9 kg (185 lb) SpO2 98% BMI 25.90 kg/m? Objective Physical Exam Constitutional: He is oriented to person, place, and time and well-developed, well-nourished, and in no distress. HENT: Head: Normocephalic and atraumatic. Musculoskeletal: Hands: Exam of the left fourth digit reveals that the finger is unable to extend at the proximal interphalangeal joint. It appears to be locked in flexion. He is able to have range of motion at the MCP and DIP. Normal distal sensation. Cap refill brisk. He has some mild swelling of the proximal phalanx. Neurological: He is alert and oriented to person, place, and time. Skin: Skin is warm and dry. No rash noted. Psychiatric: Affect and judgment normal. Nursing note and vitals reviewed. ASSESSMENT/PLAN: 1. Finger injury, left, subsequent encounter - ICD9: V58.89, 959.5, ICD10: S69.92XD Patient has an injury from March 29 and subsequently had not followed up with orthopedics. I did advise him that that would be the next step would be to see orthopedics. I am not able to straighten the finger at the PIP to splint it. I did order an x-ray and instructed him have this done before seeing orthopedics. He was called with an appointment for next week. Discussed with Dr. Thompson who was agreeable with this as well. - XR DIGIT GENERAL 3V FRONTAL/LAT/OBL LT - CONSULT TO ORTHOPAEDICS Mars Alaniz PA-C Referring Provider: SELF [200] Allergies As of Date: 05/11/2018 Noted Allergy Reaction CIPROFLOXACIN 09/15/2015 17 - Myalgia Comments: Joint pain, ecchymosis of joints per patient Date Reviewed: 05/11/2018 Reviewed by: Florence Covington Ma - Fully Assessed Reason for Visit: Finger Injury [2772] Primary Visit Diagnosis:Finger injury, left, subsequent encounter [S69.92XD] Order(s):XR DIGIT GENERAL 3V FRONTAL/LAT/OBL LT [[id number]] Order #: [id number] FUTURE CONSULT TO ORTHOPAEDICS [9026] Order #: [id number]: 1 Prescriptions as of 05/11/2018 Sig: MUPIROCIN 2 % TOPICAL OINTMENT Apply 1 application to affect* ALEVE ORAL Take by mouth. METHYLPREDNISOLONE 4 MG TABLE* Take as directed CYCLOBENZAPRINE 10 MG TABLET Take 1 tablet by mouth three * VARENICLINE 0.5 MG (11)-1 MG * Take 0.5 mg daily x3days, the* Problem List As Of Date 05/11/2018 Noted Resolved STERILIZATION [Z30.2] INVALID FOR* Seizure disorder (HCC) [G40.909] INVALID FOR* Hypoglycemia [E16.2] INVALID FOR* Bipolar affective disorder (HCC) [F31.9] INVALID FOR* Encounter Status:Closed by MARS ALANIZ PA-C on 05/11/18 EMERGENCY DEPARTMENT Observed: 04/18/2018 Status: F Source: ANTWERP SUMMARY 1:57 AM [facility] REPOSITORY [facility] Medical Records Department [address] [place] [address] Emergency Department Summary 04/17/182001 MR#: [id number] Acct: [id number] Name: POLI SIMPSON Rep #: [id number] : 1980 37 From: Nery Moon MD [...] 2. Sciatica This note was generated with InfoGin dictation software. It may contain incorrect words, [...] your Primary Care Provider. Call [facility] ([phone]) or report to the closest Emergency Room. Call 911 if necessary. 04/18/18 0157 <Electronically signed by Nery Moon MD> Date Nery Moon MD Cosigner Signature (If Indicated): Date CC: Serjio Romero MD DISCHARGE INSTRUCTION Observed: 04/17/2018 Status: F Source: TOMMY 8:04 PM [facility] REPOSITORY [facility] Medical Records Department [address] [place] [address] Discharge Instruction 04/17/182001 MR#: [id number] Acct: [id number] Name: POLI SIMPSON Rep #: [id number] : 1980 37 From: Nery Moon MD [...] problems, contact your Primary Care Provider. Call [employer] [facility] ([phone]) or report to the closest Emergency Room. Call 911 if necessary. 04/17/182003 <Electronically signed by Nery Moon MD> Date Nery Moon MD Cosigner Signature (If Indicated): Date CC: Serjio Romero MD FINGER(S) MIN 2 VIEWS Observed: 04/17/2018 Status: F Source: [place] 7:18 PM [facility] REPOSITORY [facility] Imaging Services [address] [place] [address] Finger(s) Min 2 Views MR#: [id number] Acct: [id number] Name: POLI SIMPSON Rep #: [id number] : 1980 M 37 From: Thomas Trejo MD PCP: Serjio Romero MD Status: REG ER Study: Finger(s) Min 2 Views Date of Exam: 04/17/18 Exam# [id number] Ordering Dr: Nery Moon MD STUDY: X-RAY [...] CC: Nery Moon MD; Serjio Romero MD Marketing Recruiter: Signed HAND MIN 3 VIEWS Observed: 04/17/2018 Status: F Source: [place] 5:33 PM [facility] REPOSITORY [facility] Imaging Services [address] [place] [address] Hand Min 3 Views MR#: [id number] Acct: [id number] Name: POLI SIMPSON Rep #: [id number] : 1980 M 37 From: Jamie Rayo DO PCP: Serjio Romero MD Status: REG ER Study: Hand Min 3 Views Date of Exam: 04/17/18 Exam# [id number] Ordering Dr: Nery Moon MD STUDY: X-RAY [...] Jamie Rayo DO at 18:34 EST Tel [phone], Service support , CC: Nery Moon MD; Serjio Romero MD Marketing Recruiter: Signed EMERGENCY DEPARTMENT Observed: 04/06/2018 Status: F Source: ANTWERP SUMMARY 1:00 PM [facility] REPOSITORY [facility] Medical Records Department [address] [place] [address] Emergency Department Summary 04/06/18 1126 MR#: [id number] Acct: [id number] Name: POLI SIMPSON Rep #: [id number] : 1980 37 From: Tapan Torres MD [...] uncertain etiology. This note was generated with InfoGin dictation software. It may contain incorrect words, [...] problems, contact your Primary Care Provider. Call [employer] [facility] ([phone]) or report to the closest Emergency Room. Call 911 if necessary. 04/06/18 1300 <Electronically signed by Tapan Torres MD> Date Tapan Torres MD Cosigner Signature (If Indicated): Date CC: Serjio Romero MD DISCHARGE INSTRUCTION Observed: 04/06/2018 Status: F Source: [place] 12:59 PM [facility] REPOSITORY [facility] Medical Records Department [address] [place] [address] Discharge Instruction 04/06/18 1129 MR#: [id number] Acct: [id number] Name: POLI SIMPSON Rep #: [id number] : 1980 37 From: Tapan Torres MD [...] your Primary Care Provider. Call [facility] ([phone]) or report to the closest Emergency Room. Call 911 if necessary. 04/06/18 1259 <Electronically signed by Tapan Torres MD> Date Tapan Torres MD Cosigner Signature (If Indicated): Date CC: Serjio Romero MD EMERGENCY DEPARTMENT Observed: 03/29/2018 Status: F Source: TOM[place] SUMMARY 10:05 PM [facility] REPOSITORY [facility] Medical Records Department [address] [place] [address] Emergency Department Summary 03/29/182027 MR#: [id number] Acct: [id number] Name: POLI SIMPSON Rep #: [id number] : 1980 37 From: Binu Babb MD [...] with reduction This note was generated with InfoGin dictation software. It may contain incorrect words, spelling, and punctuation that were not noted in review of the chart prior to signing ED Disposition - Plan for ED Patient: Chief Complaint: Upper Extremity Injury Instructions: ED Dislocation Finger Redu Prescriptions: Hydrocodone Bitart/Apap 5-325 [[place] 5MG-325MG] 1 tab PO Q6H PRN PRN 3 Days #8 tab PRN Reason: Pain Referrals: Binu Dobbs, [STAFF PHYSICIAN] - What to do if you have Problems For any increased pain, shortness of breath, bleeding, nausea or vomiting, chest pain, or any unexpected problems, contact your Primary Care Provider. Call [facility] ([phone]) or report to the closest Emergency Room. Call 911 if necessary. 03/29/18 8235 <Electronically signed by Binu Babb MD> Date Binu Babb MD Cosigner Signature (If Indicated): Date CC: Serjio Romero MD FINGER(S) MIN 2 VIEWS Observed: 03/29/2018 Status: F Source: [place]TW[place] 9:29 PM [facility] REPOSITORY [facility] Imaging Services [address] [place] [address] Finger(s) Min 2 Views MR#: [id number] Acct: [id number] Name: POLI SIMPSON Rep #: [id number] : 1980 M 37 From: Pio Bravo MD PCP: Serjio Romero MD Status: DEP ER Study: Finger(s) Min 2 Views Date of Exam: 03/29/18 Exam# [id number] Ordering Dr: Binu Babb MD STUDY: X-RAY [...] CC: Serjio Romero MD; Binu Babb MD Marketing Recruiter: Signed FINGER(S) MIN 2 VIEWS Observed: 03/29/2018 Status: F Source: [place] 9:11 PM [facility] REPOSITORY [facility] Imaging Services [address] [place] [address] Finger(s) Min 2 Views MR#: [id number] Acct: [id number] Name: POLI SIMPSON Sydnie Rep #: [id number] : 1980 M 37 From: Pio Bravo MD PCP: Serjio Romero MD Status: DEP ER Study: Finger(s) Min 2 Views Date of Exam: 03/29/18 Exam# [id number] Ordering Dr: Binu Babb MD STUDY: X-RAY [...] CC: Serjio Romero MD; Binu Babb MD Marketing Recruiter: Signed CERV SPINE 2 OR 3 Observed: 03/29/2018 Status: F Source: [place] VIEWS 8:30 PM [facility] [facility] [address] [place] [address] Cerv Spine 2 or 3 Views MR#: [id number] Acct: [id number] Name: POLI SIMPSON Rep #: [id number] : 1980 M 37 From: Suzanne Luevano MD PCP: Serjio Romero MD Status: REG ER Study: Cerv Spine 2 or 3 Views Date of Exam: 03/29/18 Exam# [id number] Ordering Dr: Binu Babb MD STUDY: X-RAY [...] disc findings at C5-6. Electronically Signed: Suzanne Luevaon MD at 21:42 EST , Service support , CC: Serjio Romero MD; Binu Babb MD Marketing Recruiter: Signed HAND MIN 3 VIEWS Observed: 03/29/2018 Status: F Source: TOMMY 8:27 PM [facility] REPOSITORY [facility] Imaging Services [address] [place] [id number] Hand Min 3 Views MR#: [id number] Acct: [id number] Name: POLI SIMPSON Rep #: [id number] : 1980 M 37 From: Jamie Rayo DO PCP: Serjio Romero MD Status: DEP ER Study: Hand Min 3 Views Date of Exam: 03/29/18 Exam# [id number] Ordering Dr: Binu Babb MD STUDY: X-RAY [...] Jamie Rayo DO at 22:01 EST Tel [phone], Service support , CC: Serjio Romero MD; Binu Babb MD Marketing Recruiter: Signed ALLERGIES ALLERGIES DATE TYPE / CODE NAME / CODE REACTION SEVERITY SOURCE 04/17/2018 Drug ciprofloxacin Other Unknown Tommy Allergy/416 HCl/[id number](RXNO [id number] ED [facility]) Repository 04/17/2018 Drug ciprofloxacin/F0060 Other Unknown [place] Allergy/416 70982(RXNORM) Community 026231([facility] ED CT) Repository 09/15/2015 DRUG CIPROFLOXACIN Myalgia [place] INGREDI/[address] [place] [address]([facility] ED CT) ENCOUNTERS ENCOUNTERS ADMIT/DISCHARGE ACCOUNT ADMITTING ENCOUNTER LOCATION SOURCE NUMBER CLASS 05/18/2018/05/18/19 [id number] Ambulatory [address] Repository 05/18/2018/05/18/19 [id number] Ambulatory [address] Repository 05/11/2018/01/14 [id number] Ambulatory [address] Repository 04/17/2018/04/17/20 [id number] Emergency [place] [facility] ing:ED Repository 04/06/2018/04/06/20 [id number] Emergency Tommy Tommy [address] [place] [address] ing:ED Repository 03/29/2018/03/29/20 [id number] Emergency [place] [address] [place] [address] ing:ED Repository PAYERS PAYERS ENCOUNTER GUARANTOR PAYER SUBSCRIBER SOURCE 04/17/2018 POLI L Primary POLI L Tommy [id number] Insurance:MEDICARE RAMSIERDOB: Community [facility] [id number] Repository [address]Xgn: [phone] [id number] () Date:2018-04-17 04/17/2018 Secondary POLI L [place] Insurance:MEDICAIDPol RAMSIERDOB: [facility] ic Number: [id number] [id number] Repository Date:2018-04-17 04/17/2018 Tertiary NOT GIVENUNK [place] Insurance:SELF PAY [facility] Number: Effective Repository Date:2018-04-17 04/06/2018 POLI L Primary POLI L Tommy [id number] Insurance:MEDICARE RAMSIERDOB: Community [facility] [id number]: Repository [id number]: [phone] [id number] () Date:2018-04-06 04/06/2018 Secondary POLI L [place] Insurance:MEDICAIDPol RAMSIERDOB: Community ic Number: [id number] [id number] Repository Date:2018-04-06 04/06/2018 Tertiary NOT GIVENUNK Tommy Insurance:SELF PAY [facility] Number: Effective Repository Date:2018-04-06 03/29/2018 POLI L Primary POLI L Tommy [id number] Insurance:MEDICARE RAMSIERDOB: Community [id number] [place] Number[place] Repository [address]Vgr: [phone] [id number] [phone] () Date:2018-03-29 03/29/2018 Secondary POLI [place] [id number] [id number] Repository Date:2018-03-29 03/29/2018 Tertiary NOT GIVENUNK Tommy Insurance:SELF PAY [facility] Effective Repository Date:2018-03-29
== END 2018-04-17 20:11 | disposition home or self-care (01) ==
PROVIDERS: Emergency Provider Emergency Medicine; Family Provider Family Medicine; PCP Family Medicine
DX: S63.235A Subluxation of proximal interphalangeal joint of left ring finger, initial encounter (principal); M54.31 Sciatica, right side; W18.2XXA Fall in (into) shower or empty bathtub, initial encounter; Y93.E1 Activity, personal bathing and showering; Y92.9 Unspecified place or not applicable; Y99.9 Unspecified external cause status; Z72.0 Tobacco use; Z85.828 Personal history of other malignant neoplasm of skin
CPT/HCPCS: 26770; 73130; 73140; 99283

== ENCOUNTER 2018-06-13 10:39 | Emergency (ER) | payer MEDICARE, MEDICAID, SELFPAY ==
[2018-06-13 10:40] VITALS: PULSE 90; RESP 20; TEMP 36.7; O2SAT 100; BMI 26.6
--- NOTE | 2018-06-13 11:05 | EKG12_ITS ---
Test Reason : CP Blood Pressure : / mmHG Vent. Rate : 082 BPM Atrial Rate : 082 BPM P-R Int : 142 ms QRS Dur : 106 ms QT Int : 366 ms P-R-T Axes : 086 015 034 degrees QTc Int : 427 ms Normal sinus rhythm Incomplete right bundle branch block Borderline ECG Confirmed by ARJUN VERMA, MAGDIEL ([id number]), acquisition editor MINERVA BARTH ([id number]) on 06/19/2018 11:11:01 AM Referred By: CHASE Confirmed By:MAGDIEL DÍAZ MD
--- NOTE | 2018-06-13 11:06 | ED.VISSUMM ---
- ER Visit Summary Date of Service: 06/13/18 Chief Complaint: Near syncope and chest tightness History of Present Illness: The patient is a 37 M who presents for episode of near syncope and chest tightness that started at the door. Patient was walking behind his family member when he became very shaky and lightheaded. She helped him sit down and finish shopping. He was still shaky and lightheaded when she came back to him. He is complaining of diffuse chest tightness described as soreness, like he worked out too hard. Worse with lifting his arms or taking a deep breath. Patient also feels fatigued. He states this morning he was having a mild seizure when he went outside to smoke a cigarette. He describes it as feeling shaky. This is gone on for a good portion of his life and he is not on any medications for it. He also has history of hypoglycemia. Family history of atrial fibrillation. Patient is currently complaining of the chest tightness and feeling shaky but has no other complaints at this time. He denies any alcohol or drug use or chance of withdrawal. Physical Examination: Vital signs: afebrile, hemodynamically stable, no hypoxia on room air General: well nourished, well developed, in no distress Skin: warm, dry, no rash, no pallor HEENT: normocephalic and atraumatic; PERRL, EOMI, moist mucous membranes Cardiovascular: regular rate and rhythm without murmurs, no peripheral edema, 2+ pulses all distal extremities Respiratory: No increased work of breathing, lungs are clear to auscultation bilaterally, no rales, rhonchi or wheezing Abdominal: Abdomen is soft, nontender with normoactive bowel sounds, no guarding or rebound, no masses MSK: Moves all extremities, no deformities, normal strength, shaking the legs Neuro: Awake and alert, oriented ?4. No facial droop, sensation and motor function intact and symmetric Test Results: Abnormal Lab Results 06/13/18 06/13/18 10:43 10:43 WBC 8.4 RBC 4.97 Hgb 15.5 Hct 47.1 MCV 94.8 H MCH 31.2 MCHC 32.9 RDW 13.3 RDW Differential 45.6 H Plt Count 283 MPV 9.9 Immature Gran % (Auto) 0.200 Neut % (Auto) 62.0 Lymph % (Auto) 30.5 [place] % (Auto) 6.2 Eos % (Auto) 0.9 Baso % (Auto) 0.2 Absolute Neuts (auto) 5.2 Absolute Lymphs (auto) 2.57 Total Counted Not Reportable Sodium 141 Potassium 4.1 Chloride 107 Carbon Dioxide 28.0 Anion Gap 6 BUN 20 H Creatinine 1.08 Estim Creat Clear Calc 101.79 Est GFR (MDRD) Af Amer 98 Est GFR (MDRD) Non-Af 81 BUN/Creatinine Ratio 18.5 Glucose 98 Calcium 8.8 Magnesium 2.0 Troponin I < 0.015 TSH 0.66 Clinical Impression(s) from Imaging Studies Chest X-Ray 06/13/18 12:20 IMPRESSION: No acute abnormality is seen. Electronically Signed: Robby Barraza MD at 12:54 EST , Service support , Medications Given Discontinued Medications Aspirin (Aspirin, Baby) 324 mg PO X1 STA Stop: 06/13/18 11:06 Last Admin: 06/13/18 11:56 Dose: 324 mg Sodium Chloride () 1,000 mls @ 1,000 mls/hr IV .Q1H ONE Stop: 06/13/18 12:04 Last Admin: 06/13/18 11:53 Dose: 1,000 mls/hr Nitroglycerin (Nitrostat) 0.4 mg SUBLINGUAL Q5M DOLORES Stop: 06/13/18 11:26 Last Admin: 06/13/18 12:04 Dose: 0.4 mg Admin: 06/13/18 11:58 Dose: 0.4 mg Admin: 06/13/18 11:53 Dose: 0.4 mg Emergency Department Course and Treatment: Patient was given IV fluids. Blood glucose was checked. Because of patient's chest tightness he was given aspirin and nitro and a chest pain workup was performed. Patient is having no complaint of respiratory distress, has no risk factors for PE, has no hypoxia, tachypnea or tachycardia, thus no further workup for PE was performed. EKG showed a sinus rhythm with no ischemic changes. Troponin was negative. Patient had no abnormalities on BC or BMP. Chest x-ray showed no acute process. After receiving IV fluids and a period of rest, patient had complete resolution of his symptoms. He states that these episodes do happen periodically and this is not anything concerning to him. Because patient had associated chest tightness, we discussed doing a repeat EKG and troponin at the 3-hour brian, which had already arrived, and the patient was already out of bed getting dressed and stated he did not want to stay for any further workup. Patient was encouraged to follow-up with his doctor. Discharged home. Treatment Plan: [] Disposition: [] Impression: Near syncopal episode This note was generated with [employer] dictation software. It may contain incorrect words, spelling, and punctuation that were not noted in review of the chart prior to signing ED Disposition - Plan for ED Patient: Disposition: Home or Assisted Living Instructions: ED Near Syncope Unkn Referrals: Brian Romero MD [Primary Care Provider] - 1-2 Days if not improving
[2018-06-13 11:26] LABS: Absolute Lymphocyte Count 2.57 X10^3/ul (0.83-4.51); Absolute Neutrophil Count 5.2 X10^3/uL (2.0-7.7); Basophil# 0.02 X10^3/uL; Basophil% 0.2 % (0-1); Eosinophil# 0.08 X10^3/uL; Eosinophils% 0.9 % (0-5); Hematocrit 47.1 % (40-54); Hemoglobin 15.5 g/dl (13.0-16.5); Lymphocyte # 2.57 X10^3/ul (4.0); Lymphocyte % 30.5 % (19-41); Mean Corp Hgb Conc 32.9 g/gl (32-36); Mean Corpuscular Hgb 31.2 pg (27.0-32.0); Mean Corpuscular Volume 94.8 fL (80-94); Mean Platelet Vol. 9.9 fl (6.2-12.0); Monocyte# 0.52 X10^3/uL; Monocyte% 6.2 % (0-10); Neutrophil # 5.22 X10^3/uL (2.7-7.7); Platelet Count 283 K/mm3 (150-450); RBC Distribution Width CV 13.3 % (11.6-14.6); RBC Distribution Width SD 45.6 fl (35.1-43.9); Red Blood Count 4.97 M/mm3 (4.6-6.2); White Blood Count 8.4 K/mm3 (4.4-11.0)
[2018-06-13 11:27] LABS: POSITIVE COUNT NO; POSITIVE DIFFERENTIAL NO; POSITIVE MORPHOLOGY NO
[2018-06-13 11:40] LABS: Anion Gap 6 (5-15); BUN 20 mg/dL (7-18); BUN/Creat Ratio 18.5 RATIO (10-20); Calcium,Total 8.8 mg/dL (8.5-10.1); Chloride 107 mmol/L (98-107); Creatinine, Serum 1.08 mg/dL (0.70-1.30); EST Glomerular Filtration Rate 81 mL/min (>60); Est Glom Filt Rate - Afr Amer 98 mL/min (>60); Estimated Creatinine Clearance 101.79 ml/min; Glucose 98 mg/dL (74-106); Potassium 4.1 mmol/L (3.5-5.1); Sodium Level 141 mmol/L (136-145); Thyroid Stim Hormone (TSH) 0.66 uIU/mL (0.358-3.74)
[2018-06-13 11:53] VITALS: BP 119/84; PULSE 72
[2018-06-13] MEDS: 0.9% Normal Saline 1,000 ML 1000 ML IV (11:53)
[2018-06-13] MEDS: Aspirin 81 MG TAB.CHEW 324 MG PO (11:56)
[2018-06-13 11:58] VITALS: BP 126/77; PULSE 88
[2018-06-13 12:04] VITALS: BP 121/58; PULSE 78
[2018-06-13 12:07] VITALS: BP 121/58; PULSE 86; RESP 18; O2SAT 98
--- NOTE | 2018-06-13 12:20 | RAD_ITS ---
STUDY: X-RAY CHEST REASON FOR EXAM: Male, 37 years old. Chest pain. TECHNIQUE: PA and lateral views of the chest. COMPARISON: None. FINDINGS: EKG electrodes are seen. The lungs are clear and expanded. Scattered calcified granulomas. There is no demonstrated pleural abnormality. Normal size heart. There are calcified mediastinal lymph nodes. Normal visualized pulmonary arteries. Normal visualized aortic arch and descending thoracic aorta. Normal visualized thoracic spine. Normal visualized ribs, clavicles, and shoulders. There is no demonstrated abnormality of the visualized soft tissue structures of the upper abdomen. RAD/Chest PA and Lateral IMPRESSION: No acute abnormality is seen. Electronically Signed: Robby Barraza MD at 12:54 EST , Service support ,
--- NOTE | 2018-06-13 14:12 | ED.DEP ---
ED Disposition - Plan for ED Patient: Disposition: Home or Assisted Living Instructions: ED Near Syncope Unkn Referrals: Serjio Romero MD [Primary Care Provider] - 1-2 Days if not improving
== END 2018-06-13 14:33 | disposition home or self-care (01) ==
PROVIDERS: Emergency Provider Emergency Medicine; Family Provider Family Medicine; PCP Family Medicine
DX: R55 Syncope and collapse (principal); R07.9 Chest pain, unspecified; R42 Dizziness and giddiness; R53.83 Other fatigue; F17.210 Nicotine dependence, cigarettes, uncomplicated
CPT/HCPCS: 71046; 80048; 83735; 84443; 84484; 85025; 93005; 96360; 96361; 99285; J7030; A4216

== ENCOUNTER 2019-11-11 11:38 | Emergency (ER) | payer MEDICARE, MEDICAID, SELFPAY ==
[2019-11-11 11:41] VITALS: BP 140/90; PULSE 97; RESP 18; TEMP 36.9; O2SAT 98; BMI 27.8
[2019-11-11 11:44] VITALS: BP 140/90; PULSE 97; RESP 18; TEMP 36.9; O2SAT 98
--- NOTE | 2019-11-11 12:06 | ED.VIS.GEN ---
History of Present Illness Chief Complaint: Cough Onset: Today Narrative: 39 year-old male who presents with concern for cough, fever, aches. States this began approximately 12 hours ago. States his sister is sick with similar symptoms. Denies any nausea, vomiting, abdominal pain. States he has had increased weakness. Patient is not a current smoker. No history of obstructive lung disease. Past Medical History - Allergies and Home Meds Allergies/Adverse Reactions: Allergies ciprofloxacin [From Cipro] Allergy (Verified 11/11/19 11:44) Other ciprofloxacin HCl [From Cipro] Allergy (Verified 11/11/19 11:44) Other TURNS JOINTS BLACK Primary Care Physician: Serjio Romero MD [STAFF PHYSICIAN] - Prior records reviewed: Yes Past Medical History: None Lives: Spouse/ Significant Other Smoking Status: Current every day smoker Alcohol: None Drugs: None Review of Systems General: Reports: Chills, Fever. Denies: Sweats Eyes: Denies: Visual changes - bilaterally, Diplopia ENT: Denies: Rhinorrhea, Sore throat Cardiovascular: Denies: Chest pain, Palpitations Respiratory: Reports: Cough. Denies: Dyspnea, Dyspnea on exertion Gastrointestinal: Denies: Abdominal pain, Nausea, Vomiting, Diarrhea, Melena, Hematochezia Genitourinary: Denies: Dysuria, Hematuria, Frequency Musculoskeletal: Reports: Myalgias. Denies: Back pain, Extremity Pain Skin: Denies: Rash, Wounds Neurological: Reports: Weakness. Denies: Headache, Numbness Physical Exam Vital Signs/Narrative: Vital Signs Temp Pulse Resp BP Pulse Ox 11/11/19 11:41 98.4 F 97 18 140/90 H 98 Inital Vital Signs reviewed: Yes General: Well nourished, Well developed, No Acute Distress Head: Normocephalic, Atraumatic Eyes: Perrl, EOMI ENT: Moist mucous membranes, No rhinorrhea Neck: Supple, Nontender Cardiovascular: Regular rate, Regular rhythm, No murmurs Respiratory: No distress, CTA bilaterally, Chest nontender Abdomen: Soft, Nontender, Nondistended, Normal bowel sounds Back: Nontender, Normal Inspection Extremities: Nontender, No edema Skin: Normal color, No rash Neurological: Alert, Oriented x3, Cranial nerves II-XII grossly intact, Normal Strength, Normal Sensation Psychological: Normal affect, Normal Mood Diagnostic/Tx/Re-eval Clinical Impression(s) from Imaging Studies Chest X-Ray 11/11/19 12:11 IMPRESSION: No acute abnormality is seen. Electronically Signed: Robby Barraza, at 13:06 EDT , Service support , - Medical Decision Making Appears well and nontoxic. Vital signs within normal limits. Chest x-ray shows no acute pneumonia. Likely viral illness. Advised on continued p.o. hydration. Coronavirus testing pending and patient advised to quarantine at home until results can be reported. Asked to return for worsening shortness of breath. Patient agreeable and discharged home in stable condition. ED Disposition - Plan for ED Patient: Disposition: Home or Assisted Living Diagnosis: URI (upper respiratory infection) Instructions: ED URI Viral Referrals: Serjio Romero MD [STAFF PHYSICIAN] - Additional Instructions: Please quarantine at home until test results can be provided for coronavirus. Return for worsening shortness of breath.
--- NOTE | 2019-11-11 12:11 | RAD_ITS ---
STUDY: X-RAY CHEST REASON FOR EXAM: Male, 39 years old. COUGH WITH RUNNY NOSE TECHNIQUE: Single AP portable view of the chest. COMPARISON: Comparison is made with prior study dated June 13, 2018. FINDINGS: Calcified granuloma in the right mid lung. There is no demonstrated pleural abnormality. Normal size heart. Stable calcified azygos lymph node. Normal visualized pulmonary arteries. Normal visualized aortic arch and descending thoracic aorta. There are degenerative changes of the visualized thoracic spine. Normal visualized ribs, clavicles, and shoulders. There is no demonstrated abnormality of the visualized soft tissue structures of the upper abdomen. RAD/Chest 1 View (Portable) IMPRESSION: No acute abnormality is seen. Electronically Signed: Robby Barraza, at 13:06 EDT , Service support ,
[2019-11-11 12:22] VITALS: O2SAT 97
[2019-11-11] MEDS: Ketorolac 15 MG/ML Vial IM (12:39)
== END 2019-11-11 14:22 | disposition home or self-care (01) ==
PROVIDERS: Emergency Provider Emergency Medicine
DX: J06.9 Acute upper respiratory infection, unspecified (principal); F17.200 Nicotine dependence, unspecified, uncomplicated
CPT/HCPCS: 71045; 87635; 96372; 99282; U0003

== ENCOUNTER 2020-03-23 11:51 | Emergency (ER) | payer MEDICARE, MEDICAID, SELFPAY ==
[2020-03-23 11:52] VITALS: BP 149/98; PULSE 82; RESP 18; TEMP 36.6; O2SAT 100; BMI 32.8
[2020-03-23] MEDS: Lidocaine Jelly 2% 20 ML Syringe (URO-JET) 20 APPLIC TOPICAL (13:32)
[2020-03-23 13:33] VITALS: BP 149/98; PULSE 82; RESP 18; TEMP 36.6; O2SAT 100
[2020-03-23 13:34] LABS: Bacteria 0 SEEN /hpf (None Seen); Mucous, Urine 0 SEEN /hpf (<or=2+); Red Blood Cells-Urine 0 SEEN /hpf (0-5); Squamous Epithelial Cells - UA 0 SEEN /hpf (0-5); White Blood Cells 0 SEEN /hpf (0-5)
[2020-03-23 13:47] LABS: Color, Urine Yellow (Yellow); Glucose, Dipstick Normal (Normal); Ketone-Dipstick Negative (Negative); Leukocyte Esterase-Dipstick Negative /ul (Negative); Nitrite-Dipstick Negative (Negative); Occult Blood-Urine Negative /ul (Negative); Protein-Dipstick Negative (Negative); Urine Bilirubin Dipstick Negative (Negative); Urine Clarity Clear (Clear); Urine Urobilinogen Normal (Normal)
[2020-03-23 13:54] LABS: PSA,Total - Annual Screen 0.53 ng/mL (0.00-4.00)
[2020-03-23 14:15] VITALS: PULSE 89; RESP 17; O2SAT 100
--- NOTE | 2020-03-23 14:15 | ED.VIS.GEN ---
History of Present Illness Chief Complaint: Complaint Informant: Patient Narrative: 39-year-old male presents to the emergency department with chief complaint of being unable to urinate. Patient states that he normally only urinates once a day. He states that he typically can ride his bike up to 40 miles a day. He notes that when he does urinate his stream is generally weak. He tells me he is never seen a urologist. He denies any gidi-yik-jxxsyqu medications like Benadryl or cough medications. This is never happened before. Past Medical History - Allergies and Home Meds Allergies/Adverse Reactions: Allergies ciprofloxacin [From Cipro] Allergy (Verified 03/23/20 11:54) Other ciprofloxacin HCl [From Cipro] Allergy (Verified 03/23/20 11:54) Other TURNS JOINTS BLACK Primary Care Physician: Care Physician,No Primary [Primary Care Provider] - Past Medical History: None Surgical History: noncontributory Lives: Spouse/ Significant Other Smoking Status: Never smoker Drugs: None Review of Systems General: Denies: Chills, Fever, Sweats Eyes: Denies: Visual changes - bilaterally, Diplopia ENT: Denies: Rhinorrhea, Sore throat Cardiovascular: Denies: Chest pain, Palpitations Respiratory: Denies: Dyspnea, Cough, Dyspnea on exertion Gastrointestinal: Reports: Abdominal pain. Denies: Nausea, Vomiting, Diarrhea, Melena, Hematochezia Genitourinary: Reports: - - Unable to urinate. Denies: Dysuria, Hematuria, Frequency Musculoskeletal: Denies: Back pain, Extremity Pain Skin: Denies: Rash, Wounds Neurological: Denies: Headache, Weakness, Numbness Physical Exam Vital Signs/Narrative: Vital Signs Temp Pulse Resp BP Pulse Ox 03/23/20 13:33 97.8 F 82 18 149/98 H 100 03/23/20 11:52 97.8 F 82 18 149/98 H 100 Inital Vital Signs reviewed: Yes General: Well nourished, Well developed, No Acute Distress Head: Normocephalic, Atraumatic Eyes: Perrl, EOMI ENT: Moist mucous membranes, No rhinorrhea Neck: Supple, Nontender Cardiovascular: Regular rate, Regular rhythm, No murmurs Respiratory: No distress, CTA bilaterally, Chest nontender Abdomen: Soft, Nondistended, Normal bowel sounds, Tender Back: Nontender, Normal Inspection Extremities: Nontender, No edema Skin: Normal color, No rash Neurological: Alert, Oriented x3, Cranial nerves II-XII grossly intact, Normal Strength, Normal Sensation Psychological: Normal affect, Normal Mood Diagnostic/Tx/Re-eval - Medical Decision Making Mackey catheter was placed without any difficulty per nursing. Over 1 L of urine was drained. Urine specimen normal. PSA normal. Patient will be transitioned to a leg bag and instructed to follow-up with urology. ED Disposition - Plan for ED Patient: Disposition: Home or Assisted Living Diagnosis: Acute urinary retention Instructions: ED Urinary Retention Male Referrals: Tevin Singh MD [STAFF PHYSICIAN] - As soon as possible (Call the office and let them know you had a catheter placed for urinary retention.)
== END 2020-03-23 15:08 | disposition home or self-care (01) ==
PROVIDERS: Emergency Provider Emergency Medicine
DX: R33.9 Retention of urine, unspecified (principal); Z12.5 Encounter for screening for malignant neoplasm of prostate
CPT/HCPCS: 51702; 81001; 84153; 99283; G0103

== ENCOUNTER 2020-03-28 11:15 | Emergency (ER) | payer MEDICARE, MEDICAID, SELFPAY ==
[2020-03-28 11:16] VITALS: BP 141/68; PULSE 83; RESP 16; TEMP 36.7; BMI 32.1
[2020-03-28 11:17] VITALS: BP 141/68; PULSE 83; RESP 16; TEMP 36.7; O2SAT 97
--- NOTE | 2020-03-28 11:32 | ED.VISSUMM ---
- ER Visit Summary Date of Service: 03/28/20 Chief Complaint: Mackey catheter painful History of Present Illness: The patient is a [address] Romero. He reports that he is in the process of making appointment to see a urologist in [place]. He does not know the name of this person. He reports that urology in [facility] does not accept his insurance. Patient had a Mackey catheter placed and had 1 L of urine drained. He reports that 2 days later he passed a few blood clots. That has resolved and he is no longer passing clots. However, he now has burning to his penis. Patient reports that he has lower abdominal pain is 3-10 when he is laying down and 7 out of 10 when he stands. He describes this as sharp. He has had a subjective fever. He reports that he has right-sided back pain, but is not able to quantitate this because it is not very painful. Patient reports that even prior to this that he would only urinate once a day for the past year. He states that he rides his bike approximately 40 miles per day, but has a lot of fluid intake. Physical Examination: Vitals: Stable. Afebrile. General: Well-nourished and well-developed. Head: Normocephalic atraumatic. Neck: Supple, no lymphadenopathy. No JVD. Nontender. Cardiovascular: Regular rate and rhythm. No murmurs. Respiratory: No respiratory distress. Clear to auscultation bilaterally. Abdominal: Soft, mild suprapubic tenderness to palpation, nondistended, normal bowel sounds. No guarding, rebound, or peritoneal signs. Back: Nontender. Extremities: Nontender, no edema. Skin: Normal color, no rash. Neurologic: Alert and oriented ?3. Cranial nerves II through XII are intact. Normal strength and sensation. Psych: Normal affect. Test Results: CBC is normal. Chem-7 shows a glucose 131. UA shows leukocytes and occult blood. Micro is negative. Emergency Department Course and Treatment: Patient had an IV placed and screening blood work was sent. He was given a dose of Flomax p.o. He was given a liter normal saline. He is resting comfortably. Patient had Mackey catheter removed and had a voiding trial and has been able to void without a difficulty. Treatment Plan: Patient will be discharged with Flomax and instructed to follow-up with his urologist as soon as possible. Return to the emergency department if he is unable to urinate. Disposition: To home in improved and stable condition. Impression: 1. Mackey catheter removal. 2. History of urinary retention. This note was generated with Linekongation software. It may contain incorrect words, spelling, and punctuation that were not noted in review of the chart prior to signing ED Disposition - Plan for ED Patient: Instructions: ED Urinary Retention Male Prescriptions: Tamsulosin HCl [Flomax] 0.4 mg PO DAILY #30 capsule Additional Instructions: Follow-up with urologist as soon as possible. Return to emerge department if you are unable to urinate.
[2020-03-28] MEDS: 0.9% Normal Saline 1,000 ML 1000 ML IV (11:46)
[2020-03-28 11:49] LABS: Absolute Lymphocyte Count 2.11 X10^3/uL (0.83-4.51); Absolute Neutrophil Count 4.1 X10^3/uL (2.0-7.7); Basophil# 0.02 X10^3/uL; Basophil% 0.3 % (0-1); Eosinophil# 0.17 X10^3/uL; Eosinophils% 2.5 % (0-5); Hematocrit 45.8 % (40-54); Hemoglobin 15.9 g/dL (13.0-16.5); Lymphocyte # 2.11 X10^3/ul (4.0); Lymphocyte % 30.6 % (19-41); Mean Corp Hgb Conc 34.7 g/dL (32-36); Mean Corpuscular Hgb 32.2 pg (27.0-32.0); Mean Corpuscular Volume 92.7 fL (80-94); Mean Platelet Vol. 10.2 fl (6.2-12.0); Monocyte# 0.47 X10^3/uL; Monocyte% 6.8 % (0-10); NRBC Flagged by Analyzer 0 % (0-5); Neutrophil % 59.5 % (47-70); Platelet Count 270 K/mm3 (150-450); RBC Distribution Width CV 11.9 % (11.6-14.6); RBC Distribution Width SD 40.4 fl (35.1-43.9); Red Blood Count 4.94 M/mm3 (4.6-6.2); White Blood Count 6.9 K/mm3 (4.4-11.0)
[2020-03-28 12:02] LABS: Anion Gap 6 (5-15); BUN 17 mg/dL (7-18); BUN/Creat Ratio 15.3 RATIO (10-20); Calcium,Total 9.1 mg/dL (8.5-10.1); Chloride 104 mmol/L (98-107); Creatinine, Serum 1.11 mg/dL (0.70-1.30); EST Glomerular Filtration Rate 78 mL/min (>60); Est Glom Filt Rate - Afr Amer 94 mL/min (>60); Estimated Creatinine Clearance 88.46 ml/min; Glucose 131 mg/dL (74-106); Potassium 4.2 mmol/L (3.5-5.1); Sodium Level 139 mmol/L (136-145)
[2020-03-28] MEDS: Tamsulosin HCl 0.4 MG Capsule PO (12:30)
[2020-03-28 12:36] LABS: Mucous, Urine 0 SEEN /hpf (<or=2+); Squamous Epithelial Cells - UA 0 SEEN /hpf (0-5)
[2020-03-28 12:38] LABS: Color, Urine Straw (Yellow); Glucose, Dipstick Normal (Normal); Ketone-Dipstick Negative (Negative); Leukocyte Esterase-Dipstick 500 /ul (Negative); Nitrite-Dipstick Negative (Negative); Occult Blood-Urine 150 /ul (Negative); Protein-Dipstick Negative (Negative); Specific Gravity, Urine 1.005 (1.002-1.030); Urine Bilirubin Dipstick Negative (Negative); Urine Clarity Clear (Clear); Urine Urobilinogen Normal (Normal)
[2020-03-28 12:51] LABS: Bacteria RARE /hpf (None Seen); Red Blood Cells-Urine 0-5 SEEN /hpf (0-5); White Blood Cells 0-5 SEEN /hpf (0-5)
[2020-03-28 13:15] VITALS: BP 129/71; PULSE 81; RESP 16; O2SAT 97
--- NOTE | 2020-03-28 13:56 | CM.ED ---
Social Work Consult: No PCP Informant: Self Referral Met with patient in room. Introduced self and director of social media marketing role. Patient agreeable to speaking with this director of social media marketing. Patient agrees to no longer have a PCP. Patient reports to have been following with Dr. Romero but he is not in-network with my insurance. Patient open to this director of social media marketing providing patient with list of PCP's that are in-network with patient insurance. Patient also to follow up with urologist and was open to this director of social media marketing providing patient with list of urologist that are covered by patient insurance. Patient voices to have no community concerns and to have housing, transportation, and community support. PLAN: Discharge to home. Brian QUEZADA, SANDOVAL
== END 2020-03-28 13:15 | disposition home or self-care (01) ==
LOC: ED 11:35
PROVIDERS: Emergency Provider Emergency Medicine
DX: Z46.6 Encounter for fitting and adjustment of urinary device (principal)
CPT/HCPCS: 80048; 81001; 85025; 87086; 96360; 99283; J7030

== ENCOUNTER 2021-03-04 08:13 | Emergency (ER) | payer MEDICARE, MEDICAID, SELFPAY ==
[2021-03-04 08:14] VITALS: BP 138/101; PULSE 65; RESP 16; TEMP 35.8; O2SAT 100; BMI 26.6
--- NOTE | 2021-03-04 08:22 | ED.VIS.DENTA ---
HPI History of Present Illness Chief Complaint: Dental Informant: patient Onset/Context/Timing Onset: Days (2-3) Context: Gradual Onset Timing: Continuous Quality: ache Location: front left mandibular incisors Current Severity: Moderate Maximum Severity: Moderate Worsened by: moving affected teeth/eating Relieved by: - (nothing. tried ibuprofen several times.) Associated Symptoms Assocated Symptom - Dental: Negative for fever, jaw swelling or face swelling Narrative Narrative: Patient has been having some issues with his bottom teeth that he has seen the dentist for, and has an appointment later this week, but pain has become severe, they are a little loosened which has been the case for about the past week, and overnight last night he could not sleep because the pain was so severe despite taking ibuprofen. He denies any fevers or chills or drainage. No bleeding. No injury. [facility] Medical History (Updated 03/04/21 @ 08:[address] Tay River MD) Diabetes Medical History no medical history no medical history Home Medications tamsulosin 0.4 mg PO DAILY #30 cap 03/28/20 [Rx Last Taken Unknown] amoxicillin 500 mg PO TID #30 tab 03/04/21 [Rx Last Taken Unknown] tramadol 50 mg PO Q6H PRN 2 Days #8 tab 03/04/21 [Rx Last Taken Unknown] Allergy/AdvReac Type Severity Reaction Status Date / Time ciprofloxacin [From Cipro] Allergy Other Verified 03/04/21 08:16 ciprofloxacin HCl Allergy Other Verified 03/04/21 08:16 [From Cipro] Social History Smoking Status: Current every day smoker tobacco type: cigarettes ROS ROS ED Constitutional Constitutional ED: Denies chills or fever(s) Eyes Eyes: Denies change in vision or double vision ENT ENT ED: Reports dental pain; Denies sinus pain or throat swelling Cardiovascular Cardiovascular: Denies chest pain or palpitations Respiratory/Chest Respiratory/Chest: Denies cough or dyspnea Integumentary Denies abscess or rash Neurologic Neurologic: Denies headache(s), paresthesias or weakness EXAM Physical Exam Const Vital Signs: 03/04/21 08:14 Temperature 96.4 F L Temperature Source Temporal Pulse Rate 65 Respiratory Rate 16 Blood Pressure 138/101 H Blood Pressure Mean 113 Pulse Ox 100 Oxygen Delivery Method Room Air Positive well nourished and well developed General Appearance ED: well developed and NAD HEENT HEENT Narrative: It appears that the patient's mandibular incisors and nearby canines are the only teeth he has on the mandibular row and he is otherwise edentulous. They are all a little loose. Teeth #22-24 are tender. They are normal-appearing. The gingiva is a little erythematous but it is nontender, there is no swelling, no abscess, no bleeding. There is no trismus. Sublingual area normal. Tongue normal. Face and Sinus: sinuses nontender Throat: posterior oropharynx normal Eyes PERRL and EOMs intact bilaterally Neck no lymphadenopathy and supple Resp normal respiratory effort Neuro oriented x3 and CN's II-XII intact bilaterally Sensorium / Orientation: alert Gait (Neuro): normal gait Psych mental status grossly normal and thought process normal Skin no rashes or lesions noted and no wounds MDM MDM MDM Narrative Medical decision making narrative: Patient does not have objective evidence of infection, however his OARRS report is negative and I have no problem prescribing him amoxicillin and a few tramadol until he can see his dentist. Discharge Plan Triage Chief Complaint: Dental ED Provider: Tay River Dx/Rx/DC Orders Clinical Impression: Odontalgia Instructions: ED Dental Pain Prescriptions: New tramadol 50 MG tablet 50 mg PO Q6H PRN (Reason: pain) 2 Days Qty: 8 RF: 0 amoxicillin 500 MG tablet 500 mg PO TID Qty: 30 RF: 0 No Action tamsulosin 0.4 MG capsule 0.4 mg PO DAILY Qty: 30 RF: 0 Primary Care Provider: Care Physician,No Primary Referrals: Dentist,Your [STAFF PHYSICIAN] - Keep Abraham appointment Disposition Disposition: Home, Self Care
== END 2021-03-04 08:57 | disposition home or self-care (01) ==
LOC: ED 08:38
PROVIDERS: Emergency Provider Emergency Medicine
DX: K08.89 Other specified disorders of teeth and supporting structures (principal); E11.9 Type 2 diabetes mellitus without complications; F17.210 Nicotine dependence, cigarettes, uncomplicated; Z79.899 Other long term (current) drug therapy
CPT/HCPCS: 99282

== ENCOUNTER 2021-05-04 20:02 | Emergency (ER) | payer MEDICARE, MEDICAID, SELFPAY ==
[2021-05-04 20:03] VITALS: BP 124/81; PULSE 103; RESP 18; TEMP 36.4; O2SAT 98; BMI 26.6
--- NOTE | 2021-05-04 22:33 | ED.VIS.BACK ---
HPI History of Present Illness Chief Complaint: Back Informant: patient Narrative Narrative: Worsening left lower back pain radiating into his left thigh for the past 2 days. Started after lifting weights [employer]ema 5 days ago. However tripped over his cat 2 days ago with symptoms worsen. Symptoms worsening with back extension improved with flexion. No previous similar symptoms. No loss of bowel or bladder control. No saddle anesthesia. Patient on tamsulosin for enlarged prostate. No urinary symptoms. Reports he been using 800 mg ibuprofen every 4 hours. Came to be evaluated due to his daughter stating he needs to be checked out. Prior similar symptoms: No PFSH PFSH Medical History Diabetes Home Medications tamsulosin 0.4 mg PO DAILY #30 cap 03/28/20 [Rx Last Taken Unknown] amoxicillin 500 mg PO TID #30 tab 03/04/21 [Rx Last Taken Unknown] tramadol 50 mg PO Q6H PRN 2 Days #8 tab 03/04/21 [Rx Last Taken Unknown] cyclobenzaprine 10 mg PO TID PRN #12 tab 05/04/21 [Rx Last Taken Unknown] Allergy/AdvReac Type Severity Reaction Status Date / Time ciprofloxacin [From Cipro] Allergy Other Verified 03/04/21 08:16 ciprofloxacin HCl Allergy Other Verified 03/04/21 08:16 [From Cipro] Social History Smoking Status: Current every day smoker tobacco type: cigarettes ROS ROS ED Constitutional Constitutional ED: Denies chills, fever(s) or sweats Eyes Eyes: Denies change in vision ENT ENT ED: Denies dysphagia or sore throat Cardiovascular Cardiovascular: Denies chest pain, leg edema, palpitations or racing heartbeat Respiratory/Chest Respiratory/Chest: Denies cough, dyspnea or dyspnea on exertion Gastrointestinal Gastrointestinal: Denies abdominal pain, diarrhea, nausea or vomiting Genitourinary Genitourinary ED: Denies dysuria, hematuria or urinary frequency Musculoskeletal Musculoskeletal: Reports back pain; Denies extremity pain or neck pain Integumentary Denies rash or wounds Neurologic Neurologic: Denies headache(s), paresthesias or weakness EXAM Physical Exam Const Vital Signs: 05/04/21 20:03 Temperature 97.5 F L Temperature Source Temporal Pulse Rate 103 H Respiratory Rate 18 Blood Pressure 124/81 H Blood Pressure Mean 95 Pulse Ox 98 Oxygen Delivery Method Room Air Positive well nourished and well developed General Appearance ED: well developed and NAD HEENT Reports moist mucous membranes normocephalic and atraumatic Eyes PERRL, EOMs intact bilaterally and conjunctivae normal General Eye ED: Yes normal appearance of both eyes Neck no lymphadenopathy and supple General: Negative for tenderness Chest Wall Chest: Negative for tenderness Resp normal respiratory effort and normal air movement Effort and Inspection: symmetric chest movement; Negative for respiratory distress Cardio regular rate, regular rhythm and no murmurs Peripheral Pulses: pulses 2+ throughout GI normal to inspection, nondistended, normoactive bowel sounds and non-tender Palpation: Negative for guarding or rebound tenderness present Back/Spine no CVA tenderness and no thoracic nor lumbar tenderness Back/Spine Narrative: No midline tenderness. Straight leg test negative bilaterally 2+ patellar reflex. Pulses intact distally of the lower extremities. Patient able to stand, for flexion improvement, extension he notes increasing pain. Pain along the sciatic nerve at the piriformis. Extremity normal to inspection General Extremety ED: Negative for edema or tenderness General Extremity: Negative for edema Neuro oriented x3 and no sensory deficits noted Sensorium / Orientation: awake and alert Skin no rashes or lesions noted and no wounds MDM MDM MDM Narrative Medical decision making narrative: Patient no cauda equina symptoms. Exam concerns for sciatica. Symptoms worse with back extension. Patient states radiating pain across anterior thigh concerning for potential L3 nerve distribution. Discussed with patient peripheral impingement syndrome at this time. Discussed appropriate use of ibuprofen every 6 hours of 600 mg. Will be placed on muscle relaxers. He is given follow-up with pain management as an outpatient for potential further outpatient treatment. All questions were answered. Patient is being discharged under pandemic conditions under declared global, national and state disaster activation, with limited medical resources. Patient and community understands this. Results discussed in layman's terms to the patient satisfaction. All questions answered in layman's terms. Patient understands importance of follow-up care as directed. Patient has been instructed to return to the ED immediately if new symptoms, problems, or questions occur. We mutually agree with the plan of disposition. The patient understand that they may call or return with any questions or concerns at any time. Discharge Plan Triage Chief Complaint: Back ED Provider: Nelson Alonzo Dx/Rx/DC Orders Clinical Impression: Acute left-sided back pain with sciatica Instructions: ED Sciatica Prescriptions: New cyclobenzaprine 10 mg tablet 10 mg PO TID PRN (Reason: muscle spasm) Qty: 12 RF: 0 No Action tamsulosin 0.4 MG capsule 0.4 mg PO DAILY Qty: 30 RF: 0 tramadol 50 MG tablet 50 mg PO Q6H PRN (Reason: pain) 2 Days Qty: 8 RF: 0 amoxicillin 500 MG tablet 500 mg PO TID Qty: 30 RF: 0 Primary Care Provider: Care Physician,No Primary Referrals: Margie Simeon MD [STAFF PHYSICIAN] - 1 Week if not improving Care Physician,No Primary [Primary Care Provider] - Activity Restrictions/Additional Instructions: Take your ibuprofen 600 mg every 6 hours as needed. Use muscle relaxers as needed, no driving or heavy machinery while taking this medication. Follow-up with Dr. Simeon as outpatient Disposition Disposition: Home, Self Care
== END 2021-05-04 22:48 | disposition home or self-care (01) ==
LOC: ED 22:38
PROVIDERS: Emergency Provider Emergency Medicine; Visit Provider Emergency Medicine
DX: M54.42 Lumbago with sciatica, left side (principal); E11.9 Type 2 diabetes mellitus without complications; F17.210 Nicotine dependence, cigarettes, uncomplicated
CPT/HCPCS: 99282

== ENCOUNTER 2022-04-16 07:08 | Emergency (ER) | payer MEDICARE, MEDICAID, SELFPAY ==
[2022-04-16 07:09] VITALS: BP 130/87; PULSE 77; RESP 16; TEMP 36.6; O2SAT 96; BMI 32.2
[2022-04-16] MEDS: Lidocaine 1% (20 ml mdv) 20 ML Vial INFILT (08:05)
--- NOTE | 2022-04-16 08:05 | EX.ED.GENINJ ---
HPI History of Present Illness Chief Complaint: Fall Informant: patient Narrative Narrative: Patient is a 41-year-old male with history of prior left fourth finger fracture remotely presenting with injury and laceration to his left fourth finger. Patient states he was helping a friend move a TV downstairs last night when it slipped. They were able to catch it but patient scraped his left ring finger. This occurred around 9 PM. He also fell like he strained his neck a little bit on the left side. He went to bed and put a medicated Band-Aid on it. When he woke up noticed that the wound was gaping and the laceration was deeper that he thought so he came in to be evaluated further. No associated numbness and tingling. Is having some mild muscle pain in his bilateral neck that radiates anterior. Denies any significant shoulder pain. Did not take anything for symptoms prior to arrival. No other complaints at this time. Patient is right-hand dominant. Tetanus Immunization: Unknown [facility] Medical History Depression Diabetes Home Medications tamsulosin 0.4 mg capsule 0.4 mg PO DAILY #30 caps 03/28/20 [Rx Last Taken Unknown] aripiprazole 5 mg tablet (Abilify) 5 mg PO DAILY #30 tabs 03/31/22 [Rx Last Taken Unknown] cephalexin 500 mg capsule 500 mg PO Q8H #21 caps 04/16/22 [Rx Last Taken Unknown] Allergy/AdvReac Type Severity Reaction Status Date / Time ciprofloxacin [From Cipro] Allergy Unknown Other Verified 04/16/22 07:12 Family History Other Cancer Prostate cancer Surgical History No history of previous surgery Social History Smoking Status: Current every day smoker tobacco type: cigarettes alcohol intake: current alcohol intake frequency: 0-2 drinks per day Alcohol type: hard liquor substance use type: does not use ROS ROS ED Constitutional Constitutional ED: Denies chills or fever(s) Eyes Eyes: Denies change in vision ENT ENT ED: Denies rhinorrhea or sore throat Cardiovascular Cardiovascular: Denies chest pain or palpitations Respiratory/Chest Respiratory/Chest: Denies cough Gastrointestinal Gastrointestinal: Denies nausea or vomiting Musculoskeletal Musculoskeletal: Reports back pain, neck pain and other Details: left 4th finger pain Integumentary Reports other Details: laceration to left 4th finger ; Denies rash Neurologic Neurologic: Denies headache(s), paresthesias or weakness Psychiatric Psychiatric: Denies anxiety Hematologic/Lymphatic Hematologic/Lymphatic: Denies easy bleeding or easy bruising EXAM Physical Exam Const Vital Signs: 04/16/22 07:09 04/16/22 07:56 Temperature 97.8 F Temperature Source Temporal Pulse Rate 77 Respiratory Rate 16 Respiratory Effort Normal Non-Labored Blood Pressure 130/87 H Blood Pressure Mean 101 Pulse Ox 96 Oxygen Delivery Method Room Air Room Air Positive well nourished and well developed General Appearance ED: well developed and NAD HEENT HEENT Narrative: Moist mucosal membranes atraumatic Eyes PERRL and EOMs intact bilaterally Neck full ROM Neck Narrative: No midline tenderness. Mild bilateral paraspinal tenderness Chest Wall inspection of chest normal and palpation of chest normal Chest Narrative: No chest wall crepitus. Resp normal respiratory effort and clear to auscultation bilaterally Cardio regular rhythm and no murmurs Rate: regular rate GI non-distended Back/Spine normal to inspection Back/Spine Narrative: Mild bilateral trapezius tenderness palpation Thoracic Spine / Upper Back: Negative for thoracic spinal tenderness Extremity normal to inspection Extremity Narrative: Chronic deformity of the left ring finger centered around the PIP joint from prior injury. Chronic decreased range of motion of that finger per patient. Neuro oriented x3, moves all extremities, no focal motor deficits and no sensory deficits noted Psych mental status grossly normal Skin Skin Narrative: 3 cm partial-thickness laceration over the left fourth finger, dorsal aspect. It centered over the PIP joint. No active bleeding but slight serous drainage appreciated. No strain erythema. The wound is slightly gaping. PROC Procedures Lacerations finger: Length: 1.18 in Depth: Skin Shape: Flap Prep: Sterile Conditions and Shure-Clens Laceration repair: Irrigated, Local and Skin sutures Number of Sutures/Jose Manuel: 2 Suture Information: Ethilon, Simple (1), Horizontal (1) and 4-0 MDM MDM MDM Narrative Medical decision making narrative: Patient evaluated for laceration to his left fourth finger. Otherwise well-appearing. Vital signs are normal. Patient given dose of ibuprofen in the ER. Tetanus will be updated. The wound was less than 12 hours ago and is gaping. I think it would be in the patient's best benefit for some loose approximation to help with healing especially as its not a finger. Patient already has significantly decreased range of motion of that finger from a prior injury so I do not think immobilization is indicated at this time. Patient be put on prophylactic antibiotics due to how long its been since the injury occurred. Patient agreeable this plan of care. Discharge Plan Triage Chief Complaint: Fall ED Provider: Ophelia Merchant Dx/Rx/DC Orders Clinical Impression: Laceration of left ring finger, Acute strain of neck muscle Instructions: ED Laceration, Hand: All Closures, ED Neck Sprain or Strain Prescriptions: New cephalexin 500 mg capsule 500 mg PO Q8H Qty: 21 0RF No Action aripiprazole [Abilify] 5 mg tablet 5 mg PO DAILY Qty: 30 2RF tamsulosin 0.4 MG capsule 0.4 mg PO DAILY Qty: 30 0RF Primary Care Provider: Serjio Romero Referrals: Serjio Romero MD [Primary Care Provider] - Activity Restrictions/Additional Instructions: Sutures should be removed in approximately 10 days. You been placed on antibiotics to help prevent infection due to the amount of time between closure of the wound and when it occurred. Alternate ibuprofen and Tylenol at home as needed for muscle aches and pain. Disposition Disposition: Home, Self Care
[2022-04-16] MEDS: Ibuprofen 600 MG Tablet PO (08:06)
[2022-04-16] MEDS: Diphth,Pertuss(Acell),Tet Vac 0.5 ML Vial IM (08:06)
== END 2022-04-16 10:06 | disposition home or self-care (01) ==
PROVIDERS: Emergency Provider Emergency Medicine; PCP Family Medicine; Visit Provider Emergency Medicine
DX: S61.215A Laceration without foreign body of left ring finger without damage to nail, initial encounter (principal); E11.9 Type 2 diabetes mellitus without complications; S16.1XXA Strain of muscle, fascia and tendon at neck level, initial encounter; F17.210 Nicotine dependence, cigarettes, uncomplicated; W26.8XXA Contact with other sharp object(s), not elsewhere classified, initial encounter; Z23 Encounter for immunization
CPT/HCPCS: 12002; 90715; 99283

== ENCOUNTER 2023-11-02 22:50 | Emergency (ER) | payer MEDICAID, SELFPAY ==
[2023-11-02 22:50] VITALS: BP 139/85; PULSE 83; RESP 16; TEMP 35.9; O2SAT 98; BMI 29.5
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
[2023-11-02] MEDS: Ibuprofen 600 MG Tablet PO (23:03)
== END 2023-11-02 23:07 | disposition home or self-care (01) ==
LOC: ED 23:04
PROVIDERS: Emergency Provider Emergency Medicine; PCP Family Medicine; Visit Provider Emergency Medicine
DX: T22.231A Burn of second degree of right upper arm, initial encounter (principal); E11.9 Type 2 diabetes mellitus without complications; T22.111A Burn of first degree of right forearm, initial encounter; W39.XXXA Discharge of firework, initial encounter; F17.210 Nicotine dependence, cigarettes, uncomplicated; Z79.899 Other long term (current) drug therapy
CPT/HCPCS: 99282

== ENCOUNTER 2024-08-14 12:21 | Emergency (ER) | payer MEDICAID, SELFPAY ==
[2024-08-14 12:21] VITALS: BP 131/77; PULSE 72; RESP 16; TEMP 36.7; O2SAT 99
--- NOTE | 2024-08-14 12:45 | EX.ED.DYSGE1 ---
HPI <NYDIA Scott - Last Filed: 08/14/24 15:17> History of Present Illness Chief Complaint: Abd Pain Narrative Narrative: Patient a 43-year-old male with history of depression presents to the [facility] part with complaints of abdominal discomfort. Patient states that for the last 6 to 7 days, every time he eats, he feels extremely bloated, pain to his upper abdomen. He states this is also occurs with water. He denies any fever chills nausea or vomiting. Patient denies any abdominal surgeries. Here for evaluation [facility] <NYDIA Scott - Last Filed: 08/14/24 15:17> [facility] Medical History Depression Diabetes Home Medications ?Medication ?Instructions ?Recorded ?Last Taken ?Type aripiprazole 5 mg tablet (Abilify) 5 mg PO DAILY #90 tabs 04/08/24 Unknown Rx omeprazole 40 mg capsule,delayed 40 mg PO DAILY #30 caps 08/14/24 Unknown Rx release Allergy/AdvReac Type Severity Reaction Status Date / Time ciprofloxacin (From Cipro) Allergy Unknown Other Verified 05/08/24 09:31 Family History Other Cancer Prostate cancer Surgical History No history of previous surgery Social History Smoking Status: Current every day smoker tobacco type: cigarettes alcohol intake: current alcohol intake frequency: 0-2 drinks per day Alcohol type: hard liquor substance use type: does not use ROS <NYDIA Scott - Last Filed: 08/14/24 15:17> ROS ED ROS Narrative Constitutional: Negative for fever, chills, weight loss, weakness Eyes: Negative for vision loss, vision change, double vision ENT: Negative for any sore throat, ear pain, congestion Cardiovascular: Negative for any chest pain, tightness, palpitations Respiratory: Negative for any cough, sputum production, hemoptysis, dyspnea, dyspnea on exertion, orthopnea Gastrointestinal: Negative for any nausea, vomiting, diarrhea, constipation, blood in stool, blood in vomit. Positive for abdominal pain, bloating : Negative for any urinary frequency, dysuria, retention, blood in urine Muscle skeletal: Negative for any neck pain, back pain Neurological: Negative for any headache, syncope, dizziness Skin: Negative for any rashes, itching, abrasions, lacerations Psychiatric: Negative for any depression, anxiety, stress, suicidal ideation, homicidal ideation Hematologic: Negative for any excessive bruising, easy bleeding EXAM <NYDIA Scott - Last Filed: 08/14/24 15:17> Physical Exam Narrative Exam Narrative: Vital signs reviewed. HEET: Head normocephalic atraumatic, TMs clear bilaterally. Posterior pharynx is clear, moist mucous membranes. Nares clear bilaterally. Neck: Supple with no lymphadenopathy or tenderness. No signs of meningismus. Cardiac: Regular rate and rhythm no murmurs gallops or rubs, equal peripheral pulses bilaterally. Respiratory: Lungs clear to auscultation bilaterally. No chest tenderness. Abdomen: Soft, nontender, nondistended. No abdominal bruit or pulsatile masses. No hepatosplenomegaly Extremities: No peripheral edema, no signs of gross trauma or deformity. Active full range of motion of all extremities. Neuro: Cranial nerves II through XII intact, no focal neurological deficits. Skin: Clean dry and intact with no rash, purpura, petechiae, vesicles or pustules. Backs/flank: No CVA tenderness, no midline spinal tenderness, no deformity. Psych: Normal mood and affect. No SI, HI or acute psychosis. Const Vital Signs: 08/14/24 12:21 08/14/24 14:21 Temperature 98.1 F Temperature Source Temporal Pulse Rate 72 50 L Respiratory Rate 16 Blood Pressure 131/77 H 116/58 L Blood Pressure Mean 95 77 Pulse Ox 99 100 Oxygen Delivery Method Room Air Room Air Positive well nourished and well developed General Appearance ED: well developed <Dr. Rolando Das DO - Last Filed: 08/14/24 14:01> Physical Exam Const Vital Signs: 08/14/24 12:21 08/14/24 14:21 Temperature 98.1 F Temperature Source Temporal Pulse Rate 72 50 L Respiratory Rate 16 Blood Pressure 131/77 H 116/58 L Blood Pressure Mean 95 77 Pulse Ox 99 100 Oxygen Delivery Method Room Air Room Air MDM <NYDIA Scott - Last Filed: 08/14/24 15:17> MDM Lab Data Labs: Laboratory Results - last 24 hr 08/14/24 12:46 WBC 8.7 RBC 4.71 Hgb 15.1 Hct 42.4 MCV 90.0 MCH 32.1 H MCHC 35.6 RDW Std Deviation 42.2 RDW Coeff of Yuan 12.7 Plt Count 278 MPV 10.2 Immature Gran % (Auto) 0.300 Neut % (Auto) 69.4 Lymph % (Auto) 25.5 Wharton % (Auto) 4.0 Eos % (Auto) 0.6 Baso % (Auto) 0.2 Absolute Neuts (auto) 6.1 Absolute Lymphs (auto) 2.22 Nucleated RBC % 0 Sodium 139 Potassium 4.1 Chloride 103 Carbon Dioxide 25.1 Anion Gap 10 BUN 12 Creatinine 1.02 Est GFR (MDRD) Non-Af 93 BUN/Creatinine Ratio 11.8 Glucose 105 H Calcium 9.6 Total Bilirubin 0.40 Direct Bilirubin 0.16 AST 30 ALT 24 Alkaline Phosphatase 121 Total Protein 7.4 Albumin 4.6 Globulin 2.9 Lipase 38 Radiography Diagnostic Testing: Clinical Impression(s) from Imaging Studies Abdomen/Pelvis CT 08/14/24 14:48 IMPRESSION: Borderline hepatomegaly and fatty infiltration of the liver. Degenerative disc disease at the L5-S1 level with the anterior listhesis and spondylolysis of the pars interarticularis of the L5 vertebrae. Reading Location: [id number] Treatment and Re-Evaluation :: Patient appears generally well, vital signs are stable, patient is nontoxic-appearing. Presenting to the emergency department with complaints of pain to his upper abdomen. Patient has been using Pepto-Bismol, Tums with minimal relief. Patient will receive basic laboratory eval's including CBC BMP liver panel lipase. IV fluids, Zofran, Pepcid will be given. CT scan with oral and IV contrast will be ordered. All radiologic examinations were read, reviewed by the emergency department attending. From these reads, a plan of care will be put in place. Patient reevaluation was in no distress. Patient CBC chemistries were unremarkable, negative lipase. CT scan of the abdomen pelvis shows borderline hepatomegaly with fatty alteration liver. Degenerative disc disease at L5-S1. No other acute findings. At this time, patient was placed on omeprazole and will follow-up with gastroenterology. Patient agreeable with the plan and is stable for discharge I have personally performed a face to face assessment of the patient and have reviewed the ALEJANDRA Note. I performed a substantive portion of the visit including all aspects of the following. My galan findings include: History is 43-year-old male presenting to the emergency room with upper abdominal bloating following eating. He states he was diagnosed with colitis here following a hospitalization several years ago but I do not see that in the computer. He notes frequent bowel movements after eating. No fevers. He states that he did not really want to come in but significant other wanted him to be seen. Exam is very minimal tenderness in the epigastrium. I hear normal bowel sounds. No guarding or rebound. No masses. No acute distress. Heart regular without murmur Medical Decison Making basic blood work will be obtained as well as CT with oral and IV contrast. Disposition will be made following those reads. If negative I would anticipate GI follow-up. <Dr. Rolando Das, DO - Last Filed: 08/14/24 14:01> MDM History & Record Review Discussion w/independent historian: Patient Lab Data Attestation: I reviewed the patient's lab results. Labs: Laboratory Results - last 24 hr 08/14/24 12:46 WBC 8.7 RBC 4.71 Hgb 15.1 Hct 42.4 MCV 90.0 MCH 32.1 H MCHC 35.6 RDW Std Deviation 42.2 RDW Coeff of Yuan 12.7 Plt Count 278 MPV 10.2 Immature Gran % (Auto) 0.300 Neut % (Auto) 69.4 Lymph % (Auto) 25.5 Wharton % (Auto) 4.0 Eos % (Auto) 0.6 Baso % (Auto) 0.2 Absolute Neuts (auto) 6.1 Absolute Lymphs (auto) 2.22 Nucleated RBC % 0 Sodium 139 Potassium 4.1 Chloride 103 Carbon Dioxide 25.1 Anion Gap 10 BUN 12 Creatinine 1.02 Est GFR (MDRD) Non-Af 93 BUN/Creatinine Ratio 11.8 Glucose 105 H Calcium 9.6 Total Bilirubin 0.40 Direct Bilirubin 0.16 AST 30 ALT 24 Alkaline Phosphatase 121 Total Protein 7.4 Albumin 4.6 Globulin 2.9 Lipase 38 Radiography Diagnostic Testing: Clinical Impression(s) from Imaging Studies Abdomen/Pelvis CT 08/14/24 14:48 IMPRESSION: Borderline hepatomegaly and fatty infiltration of the liver. Degenerative disc disease at the L5-S1 level with the anterior listhesis and spondylolysis of the pars interarticularis of the L5 vertebrae. Reading Location: [facility]- Treatment and Re-Evaluation :: Patient appears generally well, vital signs are stable, patient is nontoxic-appearing. Presenting to the emergency department with complaints of pain to his upper abdomen. Patient has been using Pepto-Bismol, Tums with minimal relief. Patient will receive basic laboratory eval's including CBC BMP liver panel lipase. IV fluids, Zofran, Pepcid will be given. CT scan with oral and IV contrast will be ordered. All radiologic examinations were read, reviewed by the emergency department attending. From these reads, a plan of care will be put in place. I have personally performed a face to face assessment of the patient and have reviewed the ALEJANDRA Note. I performed a substantive portion of the visit including all aspects of the following. My galan findings include: History is 43-year-old male presenting to the emergency room with upper abdominal bloating following eating. He states he was diagnosed with colitis here following a hospitalization several years ago but I do not see that in the computer. He notes frequent bowel movements after eating. No fevers. He states that he did not really want to come in but significant other wanted him to be seen. Exam is very minimal tenderness in the epigastrium. I hear normal bowel sounds. No guarding or rebound. No masses. No acute distress. Heart regular without murmur Medical Decison Making basic blood work will be obtained as well as CT with oral and IV contrast. Disposition will be made following those reads. If negative I would anticipate GI follow-up. Discharge Plan Triage Chief Complaint: Abd Pain ED Midlevel Provider: Spencer William ED Provider: Rolando Das Dx/Rx/DC Orders Clinical Impression: Gastritis Instructions: ED Gastritis (Adult) Prescriptions: New omeprazole 40 mg capsule,delayed release(DR/EC) 40 mg PO DAILY Qty: 30 1RF No Action aripiprazole [Abilify] 5 mg tablet 5 mg PO DAILY Qty: 90 1RF Primary Care Provider: Serjio Romero Referrals: Serjio Romero MD [Primary Care Provider] - Friend,DO Tony [Med Staff - Active Staff] - Activity Restrictions/Additional Instructions: Please take the omeprazole in the morning, daily, do it for 1 month, if it helps, you have a prescription for another month. Follow-up with GI. Print Language: Tanzanian Disposition Disposition: Home, Self Care
[2024-08-14] MEDS: Ketorolac 15 MG/ML Vial IV (12:51)
[2024-08-14] MEDS: Famotidine 200 MG/20 ML MDV 20 MG in 0.9% Normal Saline (Pres. free 8 ML 300 MG IV (12:53)
[2024-08-14 13:00] LABS: Absolute Lymphocyte Count 2.22 X10^3/uL (0.83-4.51); Absolute Neutrophil Count 6.1 X10^3/uL (2.0-7.7); Basophil# 0.02 X10^3/uL; Basophil% 0.2 % (0-1); Eosinophil# 0.05 X10^3/uL; Eosinophils% 0.6 % (0-5); Hematocrit 42.4 % (40-54); Hemoglobin 15.1 g/dL (13.0-16.5); Lymphocyte # 2.22 X10^3/ul (0.83-4.51); Lymphocyte % 25.5 % (19-41); Mean Corp Hgb Conc 35.6 g/dL (32-36); Mean Corpuscular Hgb 32.1 pg (27.0-32.0); Mean Platelet Vol. 10.2 fl (6.2-12.0); Monocyte# 0.35 X10^3/uL; NRBC Flagged by Analyzer 0 % (0-5); Neutrophil # 6.05 X10^3/uL (2.7-7.7); Neutrophil % 69.4 % (47-70); Platelet Count 278 K/mm3 (150-450); RBC Distribution Width CV 12.7 % (11.6-14.6); RBC Distribution Width SD 42.2 fl (35.1-43.9); Red Blood Count 4.71 M/mm3 (4.6-6.2); White Blood Count 8.7 K/mm3 (4.4-11.0)
[2024-08-14 13:33] LABS: Lipase 38 U/L (13-75)
[2024-08-14 13:36] LABS: AST(SGOT) 30 U/L (<=37); Alanine Aminotransfer ALT/SGPT 24 U/L (<=46); Albumin, Serum 4.6 g/dL (3.5-5.0); Alkaline Phosphatase 121 U/L (40-129); Anion Gap 10 (5-15); BUN 12 mg/dL (4-19); BUN/Creat Ratio 11.8 RATIO (10-20); Bilirubin, Direct 0.16 mg/dL (0.00-0.30); Calcium,Total 9.6 mg/dL (7.6-11.0); Carbon Dioxide 25.1 mmol/L (21.0-32.0); Chloride 103 mmol/L (98-108); Creatinine, Serum 1.02 mg/dL (0.70-1.20); EST Glomerular Filtration Rate 93 (>60); Globulin 2.9 g/dL (2.2-4.2); Glucose 105 mg/dL (70-99); Potassium 4.1 mmol/L (3.3-5.1); Protein, Total 7.4 g/dL (5.9-8.4); Sodium Level 139 mmol/L (133-145)
[2024-08-14 14:21] VITALS: BP 116/58; PULSE 50; O2SAT 100
--- NOTE | 2024-08-14 14:48 | CT_ITS ---
PROCEDURE: ABDOMEN/PELVIS WITH CONTRAST 08/14/2024 REASON FOR EXAM: ABDOMINAL PAIN BLOATING 5 day history. TECHNIQUE: Abdomen and pelvis CT with intravenous contrast. Coronal and Sagittal reconstruction series were provided. PATIENT PREPARATION: Per protocol ORAL CONTRAST TYPE: Gastrografin. CONTRAST: Isovue-300 VOLUME: 95 mL One or more dose reduction techniques were used (e.g., Automated exposure control, adjustment of the mA and/or kV according to patient size, use of iterative reconstruction technique. RADIATION DOSE SUMMARY: CTDlvol: 15.5 mGy DLP: 1006.91 mGycm COMPARISON: None FINDINGS: Lung bases: Unremarkable Liver: Gallbladder: Borderline hepatomegaly. Fatty infiltration of the liver. Spleen: Normal size. Pancreas: Normal size without evidence of mass surrounding inflammation or ductal dilation. Adrenals: Unremarkable. Kidneys: Normal renal sizes. No hydronephrosis. Bladder: Unremarkable Bowel: No bowel obstruction. Appendix: Unremarkable Lymph nodes: Unremarkable. Vasculature: The abdominal aorta and IVC are normal. Peritoneum / Retroperitoneum: Bones: Disc space narrowing and disc degeneration at the L5-S1 level. Grade 1 anterior listhesis of L5 on S1 due to spondylolysis of the pars interarticularis of the L5 vertebrae. CT/Abdomen/Pelvis WITH Contrast IMPRESSION: Borderline hepatomegaly and fatty infiltration of the liver. Degenerative disc disease at the L5-S1 level with the anterior listhesis and sp ondylolysis of the pars interarticularis of the L5 vertebrae. Reading Location: [place] [id number]
[2024-08-14 15:23] VITALS: BP 116/58; PULSE 50; RESP 16; TEMP 36.7; O2SAT 100
== END 2024-08-14 15:23 | disposition home or self-care (01) ==
PROVIDERS: Nurse Practitioner; Emergency Provider Emergency Medicine; PCP Family Medicine; Referring Provider Emergency Medicine; Visit Provider Emergency Medicine
DX: K29.70 Gastritis, unspecified, without bleeding (principal); F17.210 Nicotine dependence, cigarettes, uncomplicated
CPT/HCPCS: 74177; 80048; 80076; 83690; 85025; 96374; 96375; 99283; Q9967; A4216

== ENCOUNTER 2024-09-13 10:50 | Emergency (ER) | payer MEDICARE, MEDICAID, SELFPAY ==
[2024-09-13 10:51] VITALS: BP 101/80; PULSE 73; RESP 30; TEMP 35.8; O2SAT 97; BMI 29.0
[2024-09-13] MEDS: fentaNYL 100 MCG/2 ML Ampul 50 MCG IV ×2 (10:59→13:03)
[2024-09-13] MEDS: Ondansetron 4 MG/2 ML Vial IV (10:59)
[2024-09-13] MEDS: 0.9% Normal Saline (500mL Bag) 500 ML 1000 ML IV (11:04)
--- NOTE | 2024-09-13 11:12 | RAD_ITS ---
PROCEDURE: FOREARM 2 VIEWS 09/13/2024 REASON FOR EXAM: INJURY Distal laceration. TECHNIQUE: 2 view(s) of the left forearm COMPARISON: None FINDINGS: Bones: Unremarkable Joints: Normal alignment at the wrist and elbow. Soft tissues: Soft tissue laceration overlying the distal portion of the radius. Other: RAD/Forearm 2 Views IMPRESSION: Soft tissue laceration overlying the distal portion of the radius without radio paque foreign bodies. Reading Location: [facility]
[2024-09-13 11:22] LABS: Absolute Lymphocyte Count 3.73 X10^3/uL (0.83-4.51); Absolute Neutrophil Count 3.8 X10^3/uL (2.0-7.7); Basophil# 0.04 X10^3/uL; Basophil% 0.5 % (0-1); Eosinophil# 0.13 X10^3/uL; Eosinophils% 1.5 % (0-5); Hematocrit 43.3 % (40-54); Hemoglobin 15.1 g/dL (13.0-16.5); Lymphocyte # 3.73 X10^3/ul (0.83-4.51); Lymphocyte % 44.3 % (19-41); Mean Corp Hgb Conc 34.9 g/dL (32-36); Mean Corpuscular Hgb 31.6 pg (27.0-32.0); Mean Corpuscular Volume 90.6 fL (80-94); Mean Platelet Vol. 10.4 fl (6.2-12.0); Monocyte# 0.72 X10^3/uL; Monocyte% 8.6 % (0-10); NRBC Flagged by Analyzer 0 % (0-5); Neutrophil # 3.77 X10^3/uL (2.7-7.7); Neutrophil % 44.7 % (47-70); Platelet Count 282 K/mm3 (150-450); RBC Distribution Width CV 11.9 % (11.6-14.6); RBC Distribution Width SD 39.4 fl (35.1-43.9); Red Blood Count 4.78 M/mm3 (4.6-6.2); White Blood Count 8.4 K/mm3 (4.4-11.0)
[2024-09-13 11:41] LABS: Prothrombin Time (Protime)PT. 13.3 SECONDS (11.7-14.9)
[2024-09-13 11:42] LABS: Partial Thromboplast Time 27.4 Seconds (24.1-36.2)
[2024-09-13 11:43] LABS: Anion Gap 14 (5-15); BUN 16 mg/dL (4-19); BUN/Creat Ratio 14.8 RATIO (10-20); Calcium,Total 9.5 mg/dL (7.6-11.0); Carbon Dioxide 20.2 mmol/L (21.0-32.0); Chloride 104 mmol/L (98-108); Creatinine, Serum 1.07 mg/dL (0.70-1.20); EST Glomerular Filtration Rate 88 (>60); Estimated Creatinine Clearance 97.42 ml/min (50-250); Glucose 145 mg/dL (70-99); Sodium Level 139 mmol/L (133-145)
[2024-09-13 11:51] VITALS: BP 106/86; PULSE 62; RESP 16; O2SAT 99
[2024-09-13 12:00] VITALS: BP 106/86; PULSE 60; RESP 16; O2SAT 99
--- NOTE | 2024-09-13 12:04 | EX.ED.UPPERE ---
HPI History of Present Illness Chief Complaint: Abd Pain Narrative Narrative: Tlusn-kqui-cvlmcwet male brought in by mother injury right before arrival. Working on furniture repair using a knife excellently slipped cutting his left forearm. Profuse bleeding prior to arrival. I was called in the room on patient's arrival. Does not take any blood thinners tetanus in the last 5 years. Reports tingling to his fingers. Records note diabetes medical history however patient reports he was hypoglycemic as a child. He is not on diabetic medications. Tetanus Immunization: <5 years Prior similar symptoms: No PFSH PFSH Medical History Depression Diabetes no medical history Home Medications ?Medication ?Instructions ?Recorded ?Last Taken ?Type aripiprazole 5 mg tablet (Abilify) 5 mg PO DAILY #90 tabs 04/08/24 Unknown Rx Allergy/AdvReac Type Severity Reaction Status Date / Time ciprofloxacin (From Cipro) Allergy Unknown Other Verified 09/13/24 10:55 Family History Other Cancer Prostate cancer Surgical History No history of previous surgery Social History Smoking Status: Current every day smoker tobacco type: cigarettes alcohol intake: current alcohol intake frequency: 0-2 drinks per day Alcohol type: hard liquor substance use type: does not use ROS ROS ED Constitutional Constitutional ED: Denies fever(s) Cardiovascular Cardiovascular: Denies chest pain Respiratory/Chest Respiratory/Chest: Denies cough Gastrointestinal Gastrointestinal: Denies diarrhea or vomiting Musculoskeletal Musculoskeletal: Denies none Integumentary Reports wounds; Denies rash Neurologic Neurologic: Reports paresthesias; Denies weakness EXAM Physical Exam Const Vital Signs: 09/13/24 10:51 09/13/24 10:51 09/13/24 11:51 Temperature 96.4 F L Temperature Source Temporal Pulse Rate 73 62 Respiratory Rate 30 H 30 H 16 Blood Pressure 101/80 106/86 H Blood Pressure Mean 87 92 Pulse Ox 97 99 Oxygen Delivery Method Room Air Positive well nourished and well developed Constitutional Narrative: Nontoxic, sweaty in the room. General Appearance ED: well developed HEENT normocephalic and atraumatic Eyes General Eye ED: Yes normal appearance of both eyes Neck full ROM Resp normal respiratory effort and normal air movement Cardio regular rate and regular rhythm GI soft to palpation Extremity Extremity Narrative: Left upper extremity: ABD being removed there was clots in the wound there was a clot on his hand coming from the wound. No pulsatile bleeding noted. Initially would not move his hand due to discomfort. 5 cm laceration volar aspect distal forearm along the ulnar aspect of the forearm. After pain medicines were given, seem to be flexion at the PIP and the DIP. Sensation was intact. Opposition intact. Neuro oriented x3 MDM MDM MDM Narrative Medical decision making narrative: Interventions / MDM: Differential diagnosis: Left forearm laceration, tendon injury, artery injury. Diagnosis considered but do not suspect: N/A My EKG interpretation: N/A Imaging independently reviewed and interpreted by myself: 2 view x-ray left forearm: Soft tissue injury, no radiopaque foreign bodies. External documents reviewed: N/A Test considered but not ordered:N/A ED course: Patient injury prior to arrival large amount of bleeding with clots. Seems to have some movement of his fingers with sensation intact. IV was established fentanyl Zofran labs were ordered. X-ray ordered. I was able to get a hold of plastic hand Dr. Laws, who was not on-call, he states he will come evaluate the patient. Interim pain controlled. Labs stable hemoglobin 15.1 white count 8.4. 1205: Patient evaluated by plastic/hand Dr. Laws, concerns that he does have involvement of tendon injury of the FDS ulnar aspect along with ulnar artery laceration. His nerves seem to be intact. He spoke with the OR, currently there is no OR time for him to help, therefore the recommendation is to transfer. 1242: I spoke with [facility] transfer line with hand surgeon Dr. Westfall, discussed concerns and findings. He recommends placing him in a dorsal flex splint to rest his tendons. Will give him Ancef for antibiotics. Will work on transfer to the ED. Will speak with ED physician at [facility]. 1300: Dressing taken down to resecure, there is a clot in the wound bed there was a small arterial bleed, new wet-to-dry dressing was placed with Coban. Kerlix dressing around the distal forearm and hand, 4 inch plaster dorsal splint was placed with the wrist in a flexed position. Neuro vas intact post splinting. More uncomfortable with procedure, will redose fentanyl IV. 1312: I spoke with the ED physician at [facility] Dr. Chan, discussed patient's history findings and discussed with hand surgeon. She is excepted to the ED. Will work on transport. Re-evaluation: Guarded Disposition discussed with patient/family/significant other: Patient and mother Case discussed with consulting clinician: Plastic/hand, [facility] hand specialist Dr. Westfall, [facility] ED This note was generated with [employer] dictation software. It may contain incorrect words, spelling, and punctuation that were not noted in checking the note before signing. Lab Data Attestation: I reviewed the patient's lab results. Labs: Laboratory Results - last 24 hr 09/13/24 11:00 WBC 8.4 RBC 4.78 Hgb 15.1 Hct 43.3 MCV 90.6 MCH 31.6 MCHC 34.9 RDW Std Deviation 39.4 RDW Coeff of Yuan 11.9 Plt Count 282 MPV 10.4 Immature Gran % (Auto) 0.400 Neut % (Auto) 44.7 L Lymph % (Auto) 44.3 H [place] % (Auto) 8.6 Eos % (Auto) 1.5 Baso % (Auto) 0.5 Absolute Neuts (auto) 3.8 Absolute Lymphs (auto) 3.73 Nucleated RBC % 0 PT 13.3 INR 1.0 APTT 27.4 Sodium 139 Potassium 4.0 Chloride 104 Carbon Dioxide 20.2 L Anion Gap 14 BUN 16 Creatinine 1.07 Estim Creat Clear Calc 97.42 Est GFR (MDRD) Non-Af 88 BUN/Creatinine Ratio 14.8 Glucose 145 H Calcium 9.5 Radiography Diagnostic Testing: Clinical Impression(s) from Imaging Studies Forearm X-Ray 09/13/24 11:12 IMPRESSION: Soft tissue laceration overlying the distal portion of the radius without radiopaque foreign bodies. Reading Location: [id number] Critical Care Time Critical Care Time: Yes Critical care time (excluding procedures): 30-74 minutes, Discussing w/Patient &/or Family/Care Coordinator, Discussing w/Consultants, Arranging Admission or Transfer, Performing Direct Patient Care at Bedside and - (40 minutes) Discharge Plan Triage Chief Complaint: Abd Pain ED Provider: Nelson Alonzo Dx/Rx/DC Orders Clinical Impression: Flexor tendon laceration of left forearm with open wound, Injury of ulnar artery, Injury due to knife Prescriptions: No Action aripiprazole [Abilify] 5 mg tablet 5 mg PO DAILY Qty: 90 1RF Primary Care Provider: Serjio Romero Referrals: Serjio Romero MD [Primary Care Provider] - Print Language: Georgian Disposition Disposition: DC/Tx to Another Type of HCF Discharge Date/Time: 09/13/24 14:17
[2024-09-13 13:00] VITALS: BP 118/70; PULSE 70; RESP 16; O2SAT 96
[2024-09-13] MEDS: Cefazolin 2 GM in 0.9% Normal Saline (100mL Bag) 100 ML IV (13:06)
--- NOTE | 2024-09-13 13:45 | CON.PCM.SX_ITS ---
HPI Consult Data Date of Consult: 09/13/24 HPI Narrative HPI Narrative: BRYCE LOPEZ, is a 43 M who presents [facility] Medical History Depression Diabetes Home Medications ?Medication ?Instructions ?Recorded ?Last Taken ?Type aripiprazole 5 mg tablet (Abilify) 5 mg PO DAILY #90 t abs 04/08/24 Unknown Rx Allergy/AdvReac Type Severity Reaction Status Date / Time ciprofloxacin (From Cipro) Allergy Unknown Other Verified 09/13/24 10:55 Family History Other Cancer Prostate cancer Surgical History No history of previous surgery Social History Smoking Status: Current every day smoker tobacco type: cigarettes alcohol intake: current alcohol intake frequency: 0-2 drinks per day Alcohol type: hard liquor substance use type: does not use Lab / Micro Data 09/13/24 11:00 09/13/24 11:00 Labs: Laboratory Results - last 24 hr 09/13/24 11:00: WBC 8.4, RBC 4.78, Hgb 15.1, Hct 43.3, MCV 90.6, MCH 31.6, MCHC 34.9, RDW Std Deviation 39.4, RDW Coeff of Yuan 11.9, Plt Count 282, MPV 10.4, Immature Gran % (Auto) 0.400, Neut % (Auto) 44.7 L, Lymph % (Auto) 44.3 H, Knox % (Auto) 8.6, Eos % (Auto) 1.5, Baso % (Auto) 0.5, Absolute Neuts (auto) 3.8, Absolute Lymphs (auto) 3.73, Nucleated RBC % 0, PT 13.3, INR 1.0, APTT 27.4, Sodium 139, Potassium 4.0, Chloride 104, Carbon Dioxide 20.2 L, Anion Gap 14, BUN 16, Creatinine 1.07, Estim Creat Clear Calc 97.42, Est GFR (MDRD) Non-Af 88, BUN/Creatinine Ratio 14.8, Glucose 145 H, Calcium 9.5 Imaging Radiology Impression Forearm X-Ray 09/13/24 11:12 IMPRESSION: Soft tissue laceration overlying the distal portion of the radius without radiopaque foreign bodies. Reading Location: [id number]
--- NOTE | 2024-09-13 13:45 | EX.PCM.CON.S ---
Assessment & Plan Assessment/Plan (1) Injury due to knife: (2) Injury of ulnar artery: (3) Flexor tendon laceration of left forearm with open wound: PLAN: Plan Concern for FDS lacerations to the long ring and small fingers Concern for transection of the ulnar artery Other nerves in tendons are intact based on my exam, and the hand is well-perfused via the radial artery (all 5 digits) I spoke with the patient in the emergency department about emergent exploration of the left volar forearm wound in the setting of deficits and active pulsatile bleeding. Coban dressing was applied and stop the bleeding. There was no available operating room for immediate emergent takeback per discussion with the OR and patient was transferred emergently to [facility]. Patient will follow-up with hand specialist at [facility] HPI Consult Data Date of Consult: 09/13/24 HPI Narrative HPI Narrative: BRYCE LOPEZ is a 43 M who presents with a left distal ulnar volar forearm laceration from a knife wound from earlier this morning. Reports that he accidentally cut himself with a knife when the knife slipped. He reports sharp severe pain in the left upper extremity worsened by movements and improved with rest and elevation. He denies having any numbness or tingling in the hand. He reports some pulsatile bleeding at the time of the injury and came to the emergency room immediately. Patient is right-hand dominant. Patient is a smoker [facility] Medical History Depression Diabetes Medical History no medical history Home Medications ?Medication ?Instructions ?Recorded ?Last Taken ?Type aripiprazole 5 mg tablet (Abilify) 5 mg PO DAILY #90 tabs 04/08/24 Unknown Rx Allergy/AdvReac Type Severity Reaction Status Date / Time ciprofloxacin (From Cipro) Allergy Unknown Other Verified 09/13/24 10:55 Family History Other Cancer Prostate cancer Surgical History No history of previous surgery Social History Smoking Status: Current every day smoker tobacco type: cigarettes alcohol intake: current alcohol intake frequency: 0-2 drinks per day Alcohol type: hard liquor substance use type: does not use Physical Exam Narrative Left upper Extremity Inspection: 5 cm volar laceration on the ulnar side of the distal volar wrist with pulsatile bleeding consistent with ulnar artery transection Palpation: Deferred Motor: Able to bend and extend all MP, PIP, and DIP joints, except he is unable to bend his PIP joints on the ulnar 3 fingers (small ring and long) when isolating the FDS (concern for flexor digitorum superficialis lacerations to the long ring and small fingers). Patient is able to fire thenar eminence. He has 5+ APB (no signs of median nerve transection with regards to motor) and 5+ first dorsal interossei (no signs of ulnar nerve transection with regards to motor) Sensory: Intact to light touch on the radial and ulnar borders. He is intact to pinprick sensation on the radial and ulnar borders of all 5 fingers. No numbness over the thenar eminence. Vascular: Finger tips are warm and well perfused with <2 second capillary refill. There is biphasic Doppler signal on the radial and ulnar borders of all 5 fingers (hand is well-perfused from the radial artery). Lab / Micro Data 09/13/24 11:00 09/13/24 11:00 Labs: Laboratory Results - last 24 hr 09/13/24 11:00: WBC 8.4, RBC 4.78, Hgb 15.1, Hct 43.3, MCV 90.6, MCH 31.6, MCHC 34.9, RDW Std Deviation 39.4, RDW Coeff of Yuan 11.9, Plt Count 282, MPV 10.4, Immature Gran % (Auto) 0.400, Neut % (Auto) 44.7 L, Lymph % (Auto) 44.3 H, Schley % (Auto) 8.6, Eos % (Auto) 1.5, Baso % (Auto) 0.5, Absolute Neuts (auto) 3.8, Absolute Lymphs (auto) 3.73, Nucleated RBC % 0, PT 13.3, INR 1.0, APTT 27.4, Sodium 139, Potassium 4.0, Chloride 104, Carbon Dioxide 20.2 L, Anion Gap 14, BUN 16, Creatinine 1.07, Estim Creat Clear Calc 97.42, Est GFR (MDRD) Non-Af 88, BUN/Creatinine Ratio 14.8, Glucose 145 H, Calcium 9.5 Imaging Radiology Impression Forearm X-Ray 09/13/24 11:12 IMPRESSION: Soft tissue laceration overlying the distal portion of the radius without radiopaque foreign bodies. Reading Location: [id number] Charges/Coding Visit Charges Office Visits / Consults: [id number] OV L3 New 30min
[2024-09-13 13:57] VITALS: BP 100/86; PULSE 70; RESP 16; TEMP 35.8; O2SAT 98
[2024-09-13 13:59] VITALS: BP 100/86; PULSE 70
--- NOTE | 2024-09-13 14:14 | ED.RN ---
Report called to [facility]
== END 2024-09-13 14:17 | disposition other institution (70) ==
PROVIDERS: Emergency Provider Emergency Medicine; PCP Family Medicine; Visit Provider Emergency Medicine
DX: S56.922A Laceration of unspecified muscles, fascia and tendons at forearm level, left arm, initial encounter (principal); E11.9 Type 2 diabetes mellitus without complications; F17.210 Nicotine dependence, cigarettes, uncomplicated; X58.XXXA Exposure to other specified factors, initial encounter
CPT/HCPCS: 73090; 80048; 85025; 85610; 85730; 96365; 96375; 96376; 99285; A4216; J2405

== ENCOUNTER 2025-02-20 13:50 | Emergency (ER) | payer MEDICARE, MEDICAID, SELFPAY ==
[2025-02-20 13:51] VITALS: BP 129/96; PULSE 85; RESP 28; TEMP 36.7; O2SAT 100; BMI 27.0
[2025-02-20 14:13] LABS: SITE Not entered; Time Given 14:10:09; VBG BASE EXCESS 5 mmol/L (-1.0-3.5); VBG PO2 19 mmHg (25-40); VBG SO2 51 % (50-70); VBG TCO2 24 mmol/L (23-33)
--- NOTE | 2025-02-20 14:52 | EKG12_ITS ---
Test Reason : SOB Blood Pressure : */* mmHG Vent. Rate : 107 BPM Atrial Rate : 107 BPM P-R Int : 130 ms QRS Dur : 98 ms QT Int : 368 ms P-R-T Axes : 83 32 30 degrees QTcB Int : 491 ms Sinus tachycardia Right atrial enlargement Possible Inferior infarct , age undetermined QTcB >= 480 msec Abnormal ECG Confirmed by VINNIE REYES ([id number]), editor news ALOK BEAL ([id number]) on 02/24/2025 6:33:45 AM Referred By: LOUISE/EDVIN Confirmed By: VINNIE REYES
[2025-02-20 15:09] LABS: Hematocrit 46.5 % (40-54); Hemoglobin 16.7 g/dL (13.0-16.5); Immature Granulocytes Count 0.020 X10^3/uL (0.0-0.0); Mean Corp Hgb Conc 35.9 g/dL (32-36); Mean Corpuscular Volume 85.6 fL (80-94); Mean Platelet Vol. 10.8 fl (6.2-12.0); NRBC Flagged by Analyzer 0 % (0-5); Platelet Count 382 K/mm3 (150-450); RBC Distribution Width CV 13.3 % (11.6-14.6); RBC Distribution Width SD 41.7 fl (35.1-43.9); Red Blood Count 5.43 M/mm3 (4.6-6.2); White Blood Count 8.3 K/mm3 (4.4-11.0)
[2025-02-20 15:15] VITALS: BP 120/82; PULSE 75; RESP 18; O2SAT 100
--- NOTE | 2025-02-20 15:20 | RAD_ITS ---
PROCEDURE: CHEST PA AND LATERAL 02/20/2025 REASON FOR EXAM: SOB TECHNIQUE: Procedure Code: RADCXR Modality: DX Procedure: CHEST PA AND LATERAL FINDINGS: The heart is normal in size. Right midlung calcified granulomas. No consolidation. No acute osseous abnormalities. RAD/Chest PA and Lateral IMPRESSION: No acute cardiopulmonary abnormalities. Right lung calcified granulomas. Reading Location: [id number]
[2025-02-20] MEDS: 0.9% Normal Saline (1000mL) 1,000 ML 999 ML IV (15:26)
[2025-02-20 15:31] LABS: Anion Gap 20 (5-15); BUN 21 mg/dL (4-19); BUN/Creat Ratio 17.6 RATIO (10-20); Calcium,Total 10.6 mg/dL (7.6-11.0); Carbon Dioxide 18.5 mmol/L (21.0-32.0); Chloride 98 mmol/L (98-108); Estimated Creatinine Clearance 75.21 ml/min (50-250); Glucose 125 mg/dL (70-99); Potassium 4.0 mmol/L (3.3-5.1)
[2025-02-20 15:35] LABS: D-Dimer Quantitative (DVT/PE) 0.27 FEU/ug/m (0.27-0.49)
--- NOTE | 2025-02-20 16:00 | EDS_ITS ---
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 He is presenting for shortness of breath, tingling everywhere and cramping of his hands. He notes prior to arrival he started feel like he could not breathe, was breathing rapidly and then had a tingling sensation on the back of his head and then numbness in his extremities. He had cramping in his hands. He came in for evaluation of this. He states he has had episodes like this for the past month that seem to be elicited by walking however has never had 1 this bad. He states that he stopped going to the gym this month because he has symptomatic every time he goes to walk around. He was seen supposed to recently have an appointment with his PCP but he missed it. Currently states he is feeling much better on my evaluation when he first came in was breathing rapidly, complaining of chest tightness and quite anxious per nursing staff. [facility] Medical History Injury of left lower arm Depression Diabetes Home Medications Medication Instructions Recorded Last Taken Type aripiprazole 5 mg tablet (Abilify) 5 mg PO DAILY #90 t abs 11/25/24 Unknown Rx hydroxyzine HCl 25 mg tablet 25 mg PO TID PRN anxiety #20 tabs 02/20/25 Unknown Rx Allergy/AdvReac Type Severity Reaction Status Date / Time ciprofloxacin (From Cipro) Allergy Unknown Other Verified 09/13/24 10:55 Family History Other Cancer Prostate cancer Surgical History Exploration of tendon of hand performed Social History Smoking Status: Current every day smoker tobacco type: cigarettes alcohol intake: current alcohol intake frequency: 0-2 drinks per day Alcohol type: hard liquor substance use type: does not use ROS ROS ED Constitutional Constitutional ED: Reports sweats; Denies chills or fever(s) Cardiovascular Cardiovascular: Reports chest pain Respiratory/Chest Respiratory/Chest: Reports dyspnea; Denies cough Gastrointestinal Gastrointestinal: Denies abdominal pain, nausea or vomiting Musculoskeletal Musculoskeletal: Reports myalgias; Denies arthralgias Integumentary Denies rash Neurologic Neurologic: Reports paresthesias; Denies headache(s) or weakness Psychiatric Psychiatric: Reports anxiety Hematologic/Lymphatic Hematologic/Lymphatic: Denies easy bleeding or easy bruising EXAM Physical Exam Const Vital Signs: 02/20/25 13:51 02/20/25 13:59 02/20/25 15:15 Temperature 98.1 F Temperature Source Oral Pulse Rate 85 75 Respiratory Rate 28 H 18 Respiratory Effort Short of Breath Respiratory Pattern Tachypnea Blood Pressure 129/96 H 120/82 H Blood Pressure Mean 107 94 Pulse Ox 100 100 Oxygen Delivery Method Room Air Room Air Room Air 02/20/25 16:12 Temperature Temperature Source Pulse Rate 82 Respiratory Rate 17 Respiratory Effort Respiratory Pattern Blood Pressure 133/86 H Blood Pressure Mean 101 Pulse Ox 100 Oxygen Delivery Method Room Air Positive well nourished and well developed General Appearance ED: well developed and NAD; Negative for pallor HEENT Reports moist mucous membranes Neck supple and no JVD Resp normal respiratory effort and clear to auscultation bilaterally Cardio regular rate and regular rhythm GI non-tender and non-distended Neuro oriented x3 and no sensory deficits noted Sensorium / Orientation: alert Speech: speech normal Motor Exam: strength 5/5 throughout; Negative for general weakness Psych mental status grossly normal Mood & Affect: anxious Skin no wounds General Skin Exam: Negative for jaundice or pallor MDM MDM MDM Narrative Medical decision making narrative: Patient is evaluated for sudden onset of rapid breathing, chest tightness and discomfort as well as numbness and cramping of his hands and numbness of his legs. On presentation, patient is being triaged/initially roomed I did see him and he appeared to be having panic attacks as hyperventilatory episode. VBG and EKG obtained at that time showed sinus tachycardia and VBG consistent with respiratory alkalosis. Patient is otherwise hemodynamically stable emergency room. Given these been having these episodes with ambulation for the past month for the patient will obtain lab work including D-dimer (is tachycardic on arrival but otherwise low risk per Wells criteria), TSH, CBC and BMP. He is asymptomatic at this time, his EKG does not show any ischemic changes and I do not think this is consistent with ACS. I do not think requires a troponin level. Patient be ambulated. Was given IV fluids in the emergency room. He has a mildly low bicarb and elevated anion gap on his BMP but his lab works otherwise normal. Will provide a prescription for hydroxyzine and have encouraged outpatient follow-up. Did have social work see him as well. Patient is symptomatic with ambulation in the emergency room becomes tachycardic. Will give remainder of his fluid bolus and check orthostatics. Lab Data Attestation: I reviewed the patient's lab results. Labs: Laboratory Results - last 24 hr 02/20/25 13:55 WBC 8.3 RBC 5.43 Hgb 16.7 H Hct 46.5 MCV 85.6 MCH 30.8 MCHC 35.9 RDW Std Deviation 41.7 RDW Coeff of Yuan 13.3 Plt Count 382 MPV 10.8 Immature Gran % (Auto) 0.200 Neut % (Auto) 53.0 Lymph % (Auto) 38.7 [place] % (Auto) 7.2 Eos % (Auto) 0.4 Baso % (Auto) 0.5 Absolute Neuts (auto) 4.4 Absolute Lymphs (auto) 3.19 Nucleated RBC % 0 D-Dimer Quant (PE/DVT) 0.27 Sodium 137 Potassium 4.0 Chloride 98 Carbon Dioxide 18.5 L Anion Gap 20 H BUN 21 H Creatinine 1.20 Estim Creat Clear Calc 75.21 Est GFR (MDRD) Non-Af 76 BUN/Creatinine Ratio 17.6 Glucose 125 H Calcium 10.6 TSH 0.838 ABG Data ABG results: ABG 02/20/25 14:07 Specimen Type WALTER Sample Site Not entered VBG pH 7.74 H* VBG pO2 19 L* VBG HCO3 24 VBG Total CO2 24 VBG O2 Sat (Calc) 51 VBG Base Excess 5 H POC Mix VBG pCO2 Pt Tmp 17.4 L* O2 Delivery Device Not entered Crit Call To/Read Back Yes Blood Gas Notified Whom dr hughes Blood Gas Notified Time 14:10:09 Radiography Diagnostic Testing: Clinical Impression(s) from Imaging Studies Chest X-Ray 02/20/25 15:20 IMPRESSION: No acute cardiopulmonary abnormalities. Right lung calcified granulomas. Reading Location: [id number] Rhythm Strip Rhythm Strip: Sinus Tach Rate: 107 Ectopy: None EKG Initial EKG: Attestation: I personally reviewed and interpreted this EKG as follows: Interpretation: Sinus Tachycardia Comments: Sinus tachycardia at a rate of 107 bpm Normal axis Normal intervals Normal ST segments Discharge Plan Triage Chief Complaint: Shortness of Breath ED Provider: Ophelia Hughes Dx/Rx/DC Orders Clinical Impression: Acute hyperventilation syndrome, [place] spasm Instructions: ED Hyperventilation Syndrome Prescriptions: New hydroxyzine HCl 25 mg tablet 25 mg PO TID PRN (Reason: anxiety) Qty: 20 0RF No Action aripiprazole [Abilify] 5 mg tablet 5 mg PO DAILY Qty: 90 1RF Primary Care Provider: Serjio Romero Referrals: Serjio Romero MD [Primary Care Provider, Family Practice] Activity Restrictions/Additional Instructions: Your workup today was consistent with hyperventilation but overall largely normal. You were given IV fluids in the emergency room. Please continue to follow-up with your primary care doctor. He was prescribed medication hopefully help with breakthrough symptoms. Continue to try and abstain from any illicit drug use. Print Language: Yi Disposition Disposition: Home, Self Care
[2025-02-20 16:02] VITALS: O2SAT 100
[2025-02-20 16:12] VITALS: BP 133/86; PULSE 82; RESP 17; O2SAT 100
[2025-02-20 18:01] VITALS: BP 109/80; BP 121/84; BP 123/81; PULSE 74; PULSE 77; PULSE 98
[2025-02-20 18:33] VITALS: BP 123/81; PULSE 74; RESP 16; TEMP 37.1; O2SAT 97
--- NOTE | 2025-02-20 20:09 | CM.ED ---
Social Work SW met with patient who denies any SW needs or any additional resources. Patient states he sees Porfirio Manley at [facility] and Dr. Jones and feels he is doing well with both. No further needs at this time. Mirlande Armendariz, HEEL SLUGGER, EDUCATIONAL PSYCHOLOGY PROFESSOR
== END 2025-02-20 18:34 | disposition home or self-care (01) ==
PROVIDERS: Emergency Provider Emergency Medicine; PCP Family Medicine; Visit Provider Emergency Medicine
DX: R06.4 Hyperventilation (principal); E11.9 Type 2 diabetes mellitus without complications; R29.0 Tetany; R20.2 Paresthesia of skin; R25.2 Cramp and spasm; F32.A Depression, unspecified; F17.210 Nicotine dependence, cigarettes, uncomplicated; Z79.899 Other long term (current) drug therapy
CPT/HCPCS: 71046; 80048; 82803; 82962; 84443; 85025; 85379; 93005; 96360; 99282